=== PATIENT | female | born 1985 | race Caucasian/White ===

== ENCOUNTER 2016-05-01 08:25 | Emergency (ER) | payer OTHER ==
[~2016-05-01] VITALS: Ht 175.3 cm; Wt 61.2 kg
[~2016-05-01 08:25] MED LIST: ATIVAN0.5 M1 PO; B12 1MG PE1000 MCG/M IM; DILAUDID2 M1 PO; DONNATAL TABL16.2 MG PO; FIBER500 MG PO; HYDROXYZINE HCL25 M2 PO; LEVSIN-SL0.125 MG SL; LINZESS290 MC1 PO; LORAZEPAM0.5 M1 PO; MELOXICAM15 MG PO; METAMUCIL FIBE3.4 GM PO; OMEPRAZOLE20 M3 PO; PERCOCET 5-3251 EACH PO; PROAIR HFA8.5 GM INH; PROMETHAZINE HC25 M3 PO; REGLAN10 M1 PO; TRAMADOL HCL50 M1 PO; ZOFRAN ODT4 M1 SL
--- NOTE | 2016-05-01 08:47 | ED GI/GU/ABDOMINAL COMPLAINT ---
History of Present Illness General Chief Complaint: Nausea, Vomiting, Diarrhea Stated Complaint: NVD Source: patient, old records Exam Limitations: no limitations Vital Signs & Intake/Output Vital Signs & Intake/Output ED Intake and Output 05/02 0000 05/01 1200 Intake Total 1000 Output Total Balance 1000 Intake, IV 1000 Patient 135 lb Weight Allergies Coded Allergies: Cephalosporins (ANAPHYLAXIS 06/24/15) Penicillins (ANAPHYLAXIS 06/24/15) amoxicillin (ANAPHYLAXIS 06/24/15) eletriptan (From RELPAX) (HIVES 06/24/15) latex (HIVES, DYSPNEA 06/24/15) prednisone (STOPS HEART PER PT 06/24/15) sumatriptan (From IMITREX) (HIVES 06/24/15) Reconcile Medications Butalb/Acetaminophen/Caffeine (Fioricet 50-300-40 MG Capsule) 50 MG-300 MG-40 MG CAPSULE 1 TAB PO TID PRN MIGRAINE Hydroxyzine HCl 25 MG TABLET 1 TAB PO TID ANXIETY Metoclopramide HCl (Reglan) 10 MG TABLET 1 TAB PO 4 TIMES/DAY PRN NAUSEA 30 minutes before meals and bedtime Omeprazole 20 MG TABLET.DR 1 TAB PO DAILY ACIDITY Ondansetron HCl (Zofran) 4 MG TABLET 1 TAB PO Q6-8P PRN NAUSEA Promethazine HCl (Unknown Strength) TABLET (Unknown Dose) PO AD NAUSEA ( Reported) Triage Note: COMPLAINS OF N/V AND HEADACHE SINCE LAST PM, ALSO COMPLAINS OF INCREASED URINATION, LAST VOMITTED 20 MINUTES AGO. STATES THAT SHE IS ALSO GETTING LEG CRAMPS Triage Nurses Notes Reviewed? yes ? N Is pt currently ? No Onset: Gradual Duration: getting worse Severity Numbers: 8 Location: generalized abdomen Radiation: no radiation Activities at Onset: none HPI: Patient is a 30-year-old female with a past medical history significant for depression, GERD, migraines, ovarian cysts, cervical cancer and PSH of appendectomy, NEAL'S HERNIA, cholecystectomy, LEEP procedure for dysplasia, lysis of adhesions, Radha-en-Y gastric bypass 2004, intra-abdominal abscess was admitted to [facility] on 01/19/2016 for concerns of intractable nausea vomiting and abdominal pain in which patient was admitted for a day and which there was suspicion of mechanical obstruction versus functional extraction however no surgical intervention was performed that day image patient also received an upper GI scope with unremarkable findings. Patient HAD recent incisional hernia repair performed on February [address] VAN. Which patient presents to emergency room since 1500 yesterday of acute onset of nausea vomiting diarrhea. Patient had approximately 10-12 nonbloody nonbilious emesis and loose watery stool diarrhea production approximate 4 times. Positive for chills no fevers Patient has not been able tolerate anything by mouth since symptoms began. Patient took Phenergan with no relief of symptoms of nausea Positive for myalgias Patient then after multiple episodes of vomiting had generalized abdominal soreness reported Positive for headache WITH BLURRED VISION. LMP LAST WEEK. Denies any vaginal bleeding vaginal discharges frequency changes of urination hematuria or dysuria Past History Travel History Traveled to [place] past 21 day No Medical History Any Pertinent Medical History? 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: ovarian cyst History of MRSA: No History of VRE: No History of CDIFF: No Surgical History Surgical History: appendectomy (laparoscopic), cholecystectomy (laparoscopic), hernia repair-incisional, lap gastric bypass 08/2004 lap repair Petersens hernia 08/2007 LEEP procedure- dysplasia 2016 Psychosocial History Who do you live with Family Services at Home None What is your primary language Romansh Tobacco Use: Never used ETOH Use: denies use Illicit Drug Use: denies illicit drug use Family History Family History, If Any: MOTHER FATHER Relation not specified for: FH: colonic polyps Irritable bowel syndrome Hx Contributory? No Review of Systems Review of Systems Constitutional: Reports: see HPI, chills. EENTM: Reports: no symptoms. Respiratory: Reports: no symptoms. Cardiovascular: Reports: no symptoms. GI: Reports: see HPI, abdominal pain. Genitourinary: Reports: see HPI. Musculoskeletal: Reports: no symptoms. Skin: Reports: no symptoms. Neurological/Psychological: Reports: see HPI, headache. Hematologic/Endocrine: Reports: no symptoms. Immunologic/Allergic: Reports: no symptoms. All Other Systems: Reviewed and Negative Physical Exam Physical Exam General Appearance: mild distress Gastrointestinal: normal bowel sounds, soft, MILD GENERALIZED POINT TENDERNESS NOTED NO REBOUND TENDERNESS Comments: HEENT: Normal EENT exam, extraocular motion intact, no nystagmus. Pupils equally round and reactive to light and accommodation. Nose is atraumatic. External auditory canal and Tympanic membranes clear. Pharynx normal. No swelling or edema. Neck: Supple, no lymphadenopathy, normal range of motion without pain or tenderness Back: Nontender, no CVA tenderness. Cardiovascular: Regular rate and rhythms no murmurs rubs or gallops, normal JVP Respiratory: Chest nontender. No respiratory distress.breath sounds clear to auscultation bilaterally Abdomen: Soft, nontender nondistended, no appreciable organomegaly. Normal bowel sounds. No ascites Extremity: No edema, no calf tenderness to palpation, normal and equal pulses. Neuro: Alert oriented x3, motor sensory normal, cranial nerves II through XII grossly intact. Skin: No appreciable rash on exposed skin, skin is warm and dry. Psych: Mood and affect is normal, memory and judgment is normal. Core Measures ACS in differential dx? No Severe Sepsis Present: No Septic Shock Present: No Progress Differential Diagnosis: AAA, AMI, biliary colic, bowel obstruction, colon cancer , diverticulitis, ectopic , endometritis, esophageal varices, gastritis , hepatitis, hernia, hemorrhoids, ischemic bowel, inflamm bowel dis, intrauterine , kidney stone, Laure-Mauricio tear, ovarian cyst, ovarian torsion, pancreatitis, PID/cervicitis, peptic ulcer, PUD/GERD, perforated viscous, SBO, threatened AB, UTI/pyelo Plan of Care: Orders Procedure Date/time Status URINE 05/01 856 Complete URINALYSIS 05/01 856 Complete LIPASE 05/01 856 Complete LACTIC ACID 05/01 856 Complete HUMAN BETA HCG SCREEN 05/01 856 Complete COMPREHENSIVE METABOLIC PANEL 05/01 08 Complete CBC WITHOUT DIFFERENTIAL 05/01 08 Complete AMYLASE 05/01 08 Complete Laboratory Tests 05/01/16 1157: Lactic Acid Cancelled 05/01/16 0930: Anion Gap 9, Estimated GFR > 60, BUN/Creatinine Ratio 21.4, Glucose 88, Lactic Acid 1.2, Calcium 9.4, Total Bilirubin 0.9, AST 27, ALT 40, Alkaline Phosphatase 96, Total Protein 6.8, Albumin 4.1, Globulin 2.7, Albumin/Globulin Ratio 1.5, Amylase 47, Lipase 33, Total Beta HCG NEGATIVE, CBC w Diff NO MAN DIFF REQ, RBC 4.65, MCV 86.0, MCH 28.6, RDW 15.1 H, MPV 9.2, Gran % 92.3 H, Lymphocytes % 4.7 L, Monocytes % 2.5, Eosinophils % 0.1, Basophils % 0.4, Absolute Granulocytes 10.7 H, Absolute Lymphocytes 0.5 L, Absolute Monocytes 0.3, Absolute Eosinophils 0, Absolute Basophils 0, PUBS MCHC 33.3 05/01/16 0924: Urine Color YEL, Urine Clarity CLEAR, Urine pH 6.0, Ur Specific [place] <= 1.005 , Urine Protein NEG, Urine Ketones TRACE H, Urine Nitrite NEG, Urine Bilirubin NEG, Urine Urobilinogen 0.2, Ur Leukocyte Esterase NEG, Ur Microscopic SEDIMENT EXAMINED, Urine RBC RARE, Urine WBC 1-3 H, Ur Epithelial Cells FEW, Urine Hemoglobin SMALL H, Urine Glucose NEG, Urine Test NEGATIVE PT HAD SIGNIFICANT IMPROVEMENT OF NAUSEA WITH MEDICATIONS PT HAD IMPROVEMENT OF HEADACHE PT AFTER LABS WERE RESULTED WAS ABLE TO TOLERATE PO NONTENDER ABDOMEN NO CONCERNS OF SBO NO WARRANTING OF EMERGENT CT FOR INTRA-ABDOMINAL PROCESS HOWEVER I STRESSED WITH PT CLOSE MONITORING DUE TO SIGNIFICANT HX OF ABDOMINAL PATHOLOGY WILL F/U WITH GI PT MAY HAVE SX'S DUE TO MIGRAINE CAUSING N/V NO CONCERN OF SAH, NO THUNDERCLAP MANRIQUE HX PER PT UPON D/C PT LOOKS WELL NAD, NONTOXIC, AFEBRILE AND AGREES WITH DISPOSITION AND PLAN. (ZENAIDA ANGLIN,JENNA) Initial ED EKG: none Departure Departure Disposition: HOME OR SELF CARE Condition: Stable Clinical Impression Primary Impression: Migraine Secondary Impressions: Nausea & vomiting Referrals: TEMI DE LA CRUZ,JACKIE Rosales (PCP/Family) Additional Instructions: As discussed continue all medications as directed. Begin the prescription of Zofran for nausea and Reglan for breakthrough nausea relief. Begin a prescription of Fioricet for breakthrough migraine relief. Follow-up this week and established neurologist Dr. Sanchez for further evaluation and follow-up with your Departure Forms: Customer Survey General Discharge Information Prescriptions: Current Visit Scripts Butalb/Acetaminophen/Caffeine (Fioricet 50-300-40 MG Capsule) 1 TAB PO TID PRN MIGRAINE #15 MG Metoclopramide HCl (Reglan) 1 TAB PO 4 TIMES/DAY PRN NAUSEA #15 TAB 30 minutes before meals and bedtime Ondansetron HCl (Zofran) 1 TAB PO Q6-8P PRN NAUSEA #15 TAB
[2016-05-01] MEDS ORDERED: PROMETHAZINE12.5 M2 PO (09:14)
[2016-05-01 09:57] LABS: ABSOLUTE BASOPHIL COUNT 0 /CUMM (0.0-0.2); ABSOLUTE EOSINOPHIL COUNT 0 /CUMM (0.0-0.7); ABSOLUTE GRANULOCYTE CT 10.7 /CUMM (1.4-6.5); ABSOLUTE LYMPH COUNT 0.5 /CUMM (1.2-3.4); ABSOLUTE MONOCYTE COUNT 0.3 /CUMM (0.10-0.60); BASOPHIL % 0.4 % (0.0-2.0); EOSINOPHIL % 0.1 % (0-5); HEMATOCRIT 39.9 % (37-47); MEAN CORPUSCULAR HGB 28.6 PG (27.0-31.0); MEAN CORPUSCULAR HGB CONC 33.3 G/DL (33.0-37.0); MEAN PLATELET VOLUME 9.2 FL (7.4-10.4); PLATELET COUNT 377 /CUMM (130-400); RBC DISTRIBUTION WIDTH 15.1 % (11.5-14.5); RED BLOOD CELL CT 4.65 /CUMM (4.20-5.40); WHITE BLOOD CELL COUNT 11.6 /CUMM (4.8-10.8)
[2016-05-01 10:19] LABS: GRANULOCYTE % 92.3 % (42.2-75.2)
[2016-05-01] MEDS ORDERED: FIORICET 50-301 EACH PO (12:59)
[2016-05-01] MEDS ORDERED: ZOFRAN4 M2 PO (12:59)
[2016-05-01] MEDS ORDERED: REGLAN10 M1 PO (12:59)
[2016-05-01 13:12] VITALS: BP 92/92
== END 2016-05-01 13:35 ==
LOC: ERH 08:25
PROVIDERS: Physician Assistant
DX: G43.909 Migraine, unspecified, not intractable, without status migrainosus (principal); R11.2 Nausea with vomiting, unspecified
CPT/HCPCS: 81001; 81025; 96360; 96361; 96374; 96375; J0131; J1200; J2405

== ENCOUNTER 2016-05-05 11:23 | Inpatient (IN) | payer OTHER ==
[~2016-05-05] VITALS: Ht 175.3 cm; Wt 59.0 kg
[~2016-05-05 11:23] MED LIST changes: +FIORICET 50-301 EACH PO; +PROMETHAZINE12.5 M2 PO; +ZOFRAN4 M2 PO
--- NOTE | 2016-05-05 11:47 | NUR ---
C/O NAUSEA, VOMITING AND DIARRHEA X 1 WEEK. SEEN HERE ON 05/01 FOR SXS. STATES SHE PASSED OUT LAST NIGHT, AND IS NOW C/O FACIAL NUMBNESS AND LEGS TINGLING. HYPERVENTILATING AND DRY HEAVING IN TRIAGE.
--- NOTE | 2016-05-05 12:10 | NUR ---
PT TO ROOM 3 VIA W/C, AWAITING EVAL. Informed waiting has been performed.
--- NOTE | 2016-05-05 12:13 | ED GI/GU/ABDOMINAL COMPLAINT ---
History of Present Illness General Chief Complaint: Nausea, Vomiting, Diarrhea Stated Complaint: NVD Source: patient, old records Exam Limitations: no limitations Vital Signs & Intake/Output Vital Signs & Intake/Output Vital Signs Date Time Temp Pulse Resp B/P Pulse O2 O2 Flow FiO2 Ox Delivery Rate 05/05 1705 98.5 59 20 158/69 98 Room Air 05/05 1446 97.7 64 20 107/55 99 Room Air 05/05 1142 97.7 82 18 134/84 95 Room Air Allergies Coded Allergies: Cephalosporins (ANAPHYLAXIS 06/24/15) Penicillins (ANAPHYLAXIS 06/24/15) amoxicillin (ANAPHYLAXIS 06/24/15) eletriptan (From RELPAX) (HIVES 06/24/15) latex (HIVES, DYSPNEA 06/24/15) prednisone (STOPS HEART PER PT 06/24/15) sumatriptan (From IMITREX) (HIVES 06/24/15) Reconcile Medications Butalb/Acetaminophen/Caffeine (Fioricet 50-300-40 MG Capsule) 50 MG-300 MG-40 MG CAPSULE 1 TAB PO TID PRN MIGRAINE Hydroxyzine HCl 25 MG TABLET 1 TAB PO TID ANXIETY Metoclopramide HCl (Reglan) 10 MG TABLET 1 TAB PO 4 TIMES/DAY PRN NAUSEA 30 minutes before meals and bedtime Omeprazole 20 MG TABLET.DR 1 TAB PO DAILY ACIDITY Ondansetron HCl (Zofran) 4 MG TABLET 1 TAB PO Q6-8P PRN NAUSEA Promethazine HCl (Unknown Strength) TABLET (Unknown Dose) PO AD NAUSEA ( Reported) Triage Note: C/O NAUSEA, VOMITING AND DIARRHEA X 1 WEEK. SEEN HERE ON 05/01 FOR SXS. STATES SHE PASSED OUT LAST NIGHT, AND IS NOW C/O FACIAL NUMBNESS AND LEGS TINGLING. DRY HEAVING IN TRIAGE. Triage Nurses Notes Reviewed? yes ? n Is pt currently ? No HPI: Patient is a 30-year-old female presents complaining of abdominal pain, nausea, vomiting, diarrhea. Nausea, vomiting, diarrhea onset 5 days ago. 3-4 episodes of diarrhea daily, numerous episodes of vomiting daily. No blood present in the emesis or stool. Diffuse upper abdominal pain times one day. Pain is a sharp pain is 10 out of 10, no alleviating factors. Patient was seen in the emergency department earlier this week for her nausea, vomiting, diarrhea, had blood work, IV fluids, antiemetics, felt mildly improved and discharged home. Patient has been taking Reglan at home along with Zofran with no improvement. Positive sick contacts at home with vomiting and diarrhea. Intermittent paresthesias and cramping in hands and feet. Patient denies fevers. (PAT ALVARENGA) Past History Travel History Traveled to [place] past 21 day No Medical History Any Pertinent Medical History? 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: ovarian cyst History of MRSA: No History of VRE: No History of CDIFF: No Surgical History Surgical History: appendectomy (laparoscopic), cholecystectomy (laparoscopic), hernia repair-incisional, lap gastric bypass 08/2004 lap repair Petersens hernia 08/2007 LEEP procedure- 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 No (PAT ALVARENGA) Review of Systems Review of Systems Constitutional: Reports: malaise, weakness. Denies: chills, fever. EENTM: Reports: no symptoms. Respiratory: Denies: cough, short of breath. Cardiovascular: Denies: chest pain. GI: Reports: see HPI. Genitourinary: Reports: no symptoms. Musculoskeletal: Reports: muscle pain. Skin: Reports: no symptoms. Neurological/Psychological: Reports: paresthesia (hands and feet). Hematologic/Endocrine: Reports: no symptoms. Immunologic/Allergic: Reports: no symptoms. (PAT ALVARENGA) Physical Exam Physical Exam General Appearance: alert, awake Head: atraumatic, normal appearance Eyes: Bilateral: normal appearance, PERRL, EOMI. Ears, Nose, Throat, Mouth: hearing grossly normal, moist mucous membrane Neck: normal inspection, supple, full range of motion Respiratory: normal breath sounds, chest non-tender, no respiratory distress, lungs clear Cardiovascular: regular rate/rhythm Gastrointestinal: normal bowel sounds, soft, diffuse upper abdominal tenderness. Back: normal inspection, normal range of motion Extremities: normal range of motion Neurologic/Psych: no motor/sensory deficits, awake, alert, oriented x 3, normal gait, normal mood/affect Skin: intact, normal color, warm/dry Core Measures ACS in differential dx? No Severe Sepsis Present: No Septic Shock Present: No (ERIC ANGLIN,PAT) Progress Differential Diagnosis: perforated viscous, SBO, gastroenteritis, hernia, GERD, influenza, electrolyte abnormality, dehydration Plan of Care: Orders Procedure Date/time Status Place in observation 05/05 1754 Active Patient Data 05/05 1754 Active Add-on Test (ER Only) 05/05 1224 Active URINALYSIS 05/05 1216 Complete MAGNESIUM 05/05 1216 Complete LIPASE 05/05 1216 Complete HUMAN BETA HCG SCREEN 05/05 1216 Complete COMPREHENSIVE METABOLIC PANEL 05/05 1216 Complete CBC WITHOUT DIFFERENTIAL 05/05 1216 Complete AMYLASE 05/05 1216 Complete Laboratory Tests 05/05/16 1343: Anion Gap 11, Estimated GFR > 60, BUN/Creatinine Ratio 18.6, Glucose 91, Calcium 8.9, Magnesium 2.0, Total Bilirubin 0.5, AST 24, ALT 47, Alkaline Phosphatase 112, Total Protein 6.7, Albumin 4.0, Globulin 2.7, Albumin/Globulin Ratio 1.5, Amylase 44, Lipase 66, Total Beta HCG NEGATIVE 05/05/16 1245: CBC w Diff NO MAN DIFF REQ, RBC 4.82, MCV 85.0, MCH 28.5, RDW 15.8 H, MPV 8.7, Gran % 71.2, Lymphocytes % 22.6, Monocytes % 5.1, Eosinophils % 0.7, Basophils % 0.4, Absolute Granulocytes 7.5 H, Absolute Lymphocytes 2.4, Absolute Monocytes 0.5, Absolute Eosinophils 0.1, Absolute Basophils 0, PUBS MCHC 33.5 05/05/16 1235: Urine Color YEL, Urine Clarity CLEAR, Urine pH 6.5, Ur Specific [place] <= 1.005 , Urine Protein NEG, Urine Ketones NEG, Urine Nitrite NEG, Urine Bilirubin NEG, Urine Urobilinogen 0.2, Ur Leukocyte Esterase NEG, Ur Microscopic SEDIMENT EXAMINED, Urine RBC RARE, Ur Epithelial Cells FEW, Urine Hemoglobin TRACE-LYSED, Urine Glucose NEG Patient reevaluated multiple times. Results of labs and CT scan discussed with patient. 1700: Discussed with Dr. Van: have surgical PA evaluate patient. 1710: Discussed with Shoaib surgical PA to evaluate patient. Evaluated by surgical PA, patient to be brought in for observation, barium swallow study tomorrow. (ERIC ANGLIN,PAT) Diagnostic Imaging: Viewed by Me: CT Scan. Discussed w/RAD: CT Scan. Radiology Impression: PATIENT: GOOD ENRIQUEZ PRESENT AGE: 30 PATIENT ACCOUNT NO: [id number] : 84 LOCATION: [facility] ORDERING PHYSICIAN: PAT ANGLIN SERVICE DATE: 05/05/16 EXAM TYPE: CAT - CT ABD & PELVIS W IV CONTRAST EXAMINATION: CT ABDOMEN AND PELVIS WITH CONTRAST CLINICAL INFORMATION: Abdominal pain with vomiting, history of bariatric procedure. COMPARISON: 01/17/2016 TECHNIQUE: Multidetector volumetric imaging was performed of the abdomen and pelvis before and after the IV administration of 94 mL of Optiray 320 intravenous contrast. Sagittal and coronal reformatted images were obtained on the technologist's workstation. DLP: 264 mGy-cm FINDINGS : LUNG BASES: Hyperexpanded and unremarkable. LIVER AND SPLEEN: Unremarkable. PANCREAS GALLBLADDER AND BILIARY TREE: Pancreas and biliary tree appear unremarkable. The gallbladder has been previously removed. KIDNEYS, URETERS, AND ADRENALS: Unremarkable. URINARY BLADDER: Unremarkable. GI TRACT: The stomach and duodenum are nondilated. The proximal portion of the Radha-en-Y loop connecting the stomach pouch to the jejunum appears to be in a retrocolic position and nondilated down to its anastomosis. There is a dilated loop of small bowel best seen on coronal images with an apparent transition zone at its anastomosis to 23 through 30 with a questionable transition zone identified on image 30, however this is questionable. It is difficult to follow the bowel loops without oral contrast. The remaining bowel loops appear largely unremarkable and unchanged compared to multiple previous exams. Somewhat of an ileus-type pattern with multiple air-filled mildly prominent loops of large and small bowel. No focal fluid collections are identified. No evidence of bowel wall thickening is identified to suggest a primary pathology. I see no evidence of a hernia. Postsurgical changes are again noted. PERITONEAL CAVITY: There is no intraperitoneal free fluid identified on today's examination. RETROPERITONEUM: No evidence of adenopathy, the aorta is nonaneurysmal. PELVIC ORGANS: Unremarkable. OSSEOUS STRUCTURES: No focal destructive or sclerotic osseous lesions. ANTERIOR ABDOMINAL WALL AND SOFT TISSUES: No hernias. IMPRESSION: 1. Findings as noted without a clear-cut transition, questionable transition with a mildly dilated small bowel loop as noted. Surgical and clinical correlation recommended. 2. No evidence of an abscess at this time. DICTATED BY: LORENE ANDERSON MD DATE/TIME DICTATED:05/05/161441 CLINICAL SERVICES PROFESSIONAL:WERO DATE/TIME TRANSCRIBED:05/05/161441 CONFIDENTIAL, DO NOT COPY WITHOUT APPROPRIATE AUTHORIZATION. <Electronically signed in Other Vendor System> SIGNED BY: LORENE ANDERSON MD 05/05/16 1616 Initial ED EKG: none (PAT ALVARENGA) Departure Departure Disposition: STILL A PATIENT Condition: Stable Clinical Impression Primary Impression: Intractable vomiting Qualifiers: Vomiting type: unspecified Nausea presence: with nausea Qualified Code: R11.2 - Nausea with vomiting, unspecified Referrals: JACKIE MEMBRENO MD, I. (PCP/Family) Departure Forms: Customer Survey General Discharge Information Admission Note Documentation of Exam: Documentation of any treatments & extenuating circumstances including Concerns Regarding Discharge (functional status, medication knowledge or non-compliance, living conditions, etc.) that warrant an admission rather than observation: Observation Note Spoke With: DEANDRE VAN DO Place Patient In: Non-ED OBS Care Area Rationale for Observation: My rational for observation is as follows: Intractable vomiting despite multiple doses of IV antibiotics. Question of bowel obstruction. Patient needs to remain nothing by mouth, IV fluids, IV pain control, IV antibiotics, further abdominal imaging likely barium swallow study tomorrow. (PAT ALVARENGA) PA/ELECTRONIC IMAGING SYSTEM OPERATOR Co-Sign Statement Statement: ED Attending supervision documentation- [] I saw and evaluated the patient. I have also reviewed all the pertinent lab results and diagnostic results. I agree with the findings and the plan of care as documented in the PA's/ELECTRONIC IMAGING SYSTEM OPERATOR's documentation. [x] I have reviewed the ED Record and agree with the PA's/ELECTRONIC IMAGING SYSTEM OPERATOR's documentation. [] Additions or exceptions (if any) to the PAs/ELECTRONIC IMAGING SYSTEM OPERATOR's note and plan are summarized below: [] (LATHA DE LA CRUZ,MELISSA Alexandra)
--- NOTE | 2016-05-05 12:23 | NUR ---
LINNETTE REYES IN FOR EVAL.
--- NOTE | 2016-05-05 12:35 | NUR ---
URINE TRIO SENT.
[2016-05-05 12:53] LABS: ABSOLUTE BASOPHIL COUNT 0 /CUMM (0.0-0.2); ABSOLUTE EOSINOPHIL COUNT 0.1 /CUMM (0.0-0.7); ABSOLUTE GRANULOCYTE CT 7.5 /CUMM (1.4-6.5); ABSOLUTE LYMPH COUNT 2.4 /CUMM (1.2-3.4); ABSOLUTE MONOCYTE COUNT 0.5 /CUMM (0.10-0.60); BASOPHIL % 0.4 % (0.0-2.0); EOSINOPHIL % 0.7 % (0-5); GRANULOCYTE % 71.2 % (42.2-75.2); MEAN CORPUSCULAR HGB 28.5 PG (27.0-31.0); MEAN CORPUSCULAR HGB CONC 33.5 G/DL (33.0-37.0); MEAN PLATELET VOLUME 8.7 FL (7.4-10.4); PLATELET COUNT 418 /CUMM (130-400); RBC DISTRIBUTION WIDTH 15.8 % (11.5-14.5); RED BLOOD CELL CT 4.82 /CUMM (4.20-5.40); WHITE BLOOD CELL COUNT 10.5 /CUMM (4.8-10.8)
--- NOTE | 2016-05-05 13:24 | NUR ---
NEED REDRAW OF SST PER JAILENE IN LAB
--- NOTE | 2016-05-05 13:46 | NUR ---
REPEAT SST SENT TO LAB NOW. ALSO, EXTRA BLUE AND PINK TOP SENT TO LAB NOW.
--- NOTE | 2016-05-05 14:19 | NUR ---
PT MEDICATED WITH DILAUDID AND PHENERGEN PER EMAR.
--- NOTE | 2016-05-05 14:23 | NUR ---
PT TO CAT SCAN
--- NOTE | 2016-05-05 14:40 | NUR ---
BACK FROM CAT SCAN
--- NOTE | 2016-05-05 15:30 | NUR ---
AWAITING CAT SCAN RESULTS. Informed waiting has been performed.
--- NOTE | 2016-05-05 16:16 | CT SCAN REPORT ---
EXAMINATION: CT ABDOMEN AND PELVIS WITH CONTRAST CLINICAL INFORMATION: Abdominal pain with vomiting, history of bariatric procedure. COMPARISON: 01/17/2016 TECHNIQUE: Multidetector volumetric imaging was performed of the abdomen and pelvis before and after the IV administration of 94 mL of Optiray 320 intravenous contrast. Sagittal and coronal reformatted images were obtained on the technologist's workstation. DLP: 264 mGy-cm FINDINGS: LUNG BASES: Hyperexpanded and unremarkable. LIVER AND SPLEEN: Unremarkable. PANCREAS GALLBLADDER AND BILIARY TREE: Pancreas and biliary tree appear unremarkable. The gallbladder has been previously removed. KIDNEYS, URETERS, AND ADRENALS: Unremarkable. URINARY BLADDER: Unremarkable. GI TRACT: The stomach and duodenum are nondilated. The proximal portion of the Radha-en-Y loop connecting the stomach pouch to the jejunum appears to be in a retrocolic position and nondilated down to its anastomosis. There is a dilated loop of small bowel best seen on coronal images with an apparent transition zone at its anastomosis to 23 through 30 with a questionable transition zone identified on image 30, however this is questionable. It is difficult to follow the bowel loops without oral contrast. The remaining bowel loops appear largely unremarkable and unchanged compared to multiple previous exams. Somewhat of an ileus-type pattern with multiple air-filled mildly prominent loops of large and small bowel. No focal fluid collections are identified. No evidence of bowel wall thickening is identified to suggest a primary pathology. I see no evidence of a hernia. Postsurgical changes are again noted. PERITONEAL CAVITY: There is no intraperitoneal free fluid identified on today's examination. RETROPERITONEUM: No evidence of adenopathy, the aorta is nonaneurysmal. PELVIC ORGANS: Unremarkable. OSSEOUS STRUCTURES: No focal destructive or sclerotic osseous lesions. ANTERIOR ABDOMINAL WALL AND SOFT TISSUES: No hernias. IMPRESSION: 1. Findings as noted without a clear-cut transition, questionable transition with a mildly dilated small bowel loop as noted. Surgical and clinical correlation recommended. 2. No evidence of an abscess at this time.
--- NOTE | 2016-05-05 16:22 | NUR ---
LINNETTE REYES IN TO REVIEW POC.
--- NOTE | 2016-05-05 17:04 | NUR ---
MEDICATED PER EMAR. PT AWAITING SURGICAL CONSULT. Informed waiting has been performed.
--- NOTE | 2016-05-05 17:21 | NUR ---
SURGICAL PA STEPHANIA AT BEDSIDE.
--- NOTE | 2016-05-05 17:53 | NUR ---
PLAN IS FOR ADMISSION. Informed waiting has been performed.
--- NOTE | 2016-05-05 18:01 | Admission Core Measures ---
Admission Lab Results I reviewed the following labs: Laboratory Tests 05/05 05/05 1343 1245 Chemistry Sodium (137 - 145 mmol/L) 142 Potassium (3.5 - 5.1 mmol/L) 4.3 Chloride (98 - 107 mmol/L) 106 Carbon Dioxide (22 - 30 mmol/L) 24 Anion Gap (5 - 16) 11 BUN (7 - 17 mg/dL) 13 Creatinine (0.5 - 1.0 mg/dL) 0.7 Estimated GFR (>60 ml/min) > 60 BUN/Creatinine Ratio (7 - 25 %) 18.6 Glucose (65 - 99 mg/dL) 91 Calcium (8.4 - 10.2 mg/dL) 8.9 Magnesium (1.6 - 2.3 mg/dL) 2.0 Total Bilirubin (0.2 - 1.3 mg/dL) 0.5 AST (14 - 36 U/L) 24 ALT (9 - 52 U/L) 47 Alkaline Phosphatase (<127 U/L) 112 Total Protein (6.3 - 8.2 g/dL) 6.7 Albumin (3.5 - 5.0 g/dL) 4.0 Globulin (1.9 - 4.2 gm/dL) 2.7 Albumin/Globulin Ratio (1.1 - 2.2 %) 1.5 Amylase (30 - 110 U/L) 44 Lipase (23 - 300 U/L) 66 Total Beta HCG (NEGATIVE) NEGATIVE Hematology CBC w Diff NO MAN DIFF REQ WBC (4.8 - 10.8 /CUMM) 10.5 RBC (4.20 - 5.40 /CUMM) 4.82 Hgb (12.0 - 16.0 G/DL) 13.8 Hct (37 - 47 %) 41.0 MCV (81.0 - 99.0 FL) 85.0 MCH (27.0 - 31.0 PG) 28.5 RDW (11.5 - 14.5 %) 15.8 H Plt Count (130 - 400 /CUMM) 418 H MPV (7.4 - 10.4 FL) 8.7 Gran % (42.2 - 75.2 %) 71.2 Lymphocytes % (20.5 - 51.1 %) 22.6 Monocytes % (1.7 - 9.3 %) 5.1 Eosinophils % (0 - 5 %) 0.7 Basophils % (0.0 - 2.0 %) 0.4 Absolute Granulocytes (1.4 - 6.5 /CUMM) 7.5 H Absolute Lymphocytes (1.2 - 3.4 /CUMM) 2.4 Absolute Monocytes (0.10 - 0.60 /CUMM) 0.5 Absolute Eosinophils (0.0 - 0.7 /CUMM) 0.1 Absolute Basophils (0.0 - 0.2 /CUMM) 0 PUBS MCHC (33.0 - 37.0 G/DL) 33.5 05/05 1235 Urines Urine Color (YEL,AMB,STR) YEL Urine Clarity (CLEAR) CLEAR Urine pH (5.0 - 8.0) 6.5 Ur Specific [place] (1.001 - 1.035) <= 1.005 Urine Protein (NEG,<30 MG/DL) NEG Urine Ketones (NEG) NEG Urine Nitrite (NEG) NEG Urine Bilirubin (NEG) NEG Urine Urobilinogen (0.1 - 1.0 EU/dl) 0.2 Ur Leukocyte Esterase (NEG) NEG Ur Microscopic SEDIMENT EXAMINED Urine RBC (0 - 5 /HPF) RARE Ur Epithelial Cells (NONE,FEW) FEW Urine Hemoglobin (NEG) TRACE-LYSED Urine Glucose (N MG/DL) NEG Acute Coronary Syndrome Inclusion Criteria ACS Diagnosis No Inpatient Core Measures LDL Reminder: If No, please order W/I first 24hr of stay Congestive Heart Failure Inclusion Criteria CHF Diagnosis No Cerebrovascular accident Inclusion Criteria CVA/TIA Diagnosis No Inpatient Core Measures Bedside Swallow Eval Reminder: If BSE failed, place ST order Antithrombotic Reminder: Order Antithrombotic Medication by end of day 2 Antithrombotic Reminder: Document Reason Antithrombotic Not ordered by end of day 2 AFIB/Flutter Reminder: If Present, add to problem list AFIB/Flutter Reminder: Order Anticoag Medication for pts with AFIB/Flutter Atherosclerosis Reminder: If Present, add to problem list LDL Reminder: If No, please order W/I first 24hr of stay PT Order Reminder: If No, please order Venous thromboembolism Inpatient Core Measures VTE Risk Factors: No Risk Factors VTE Prophylaxis Ordered Inpt Mechanical (ALPS/TEDS) [facility] prophylaxis d/t No contraindications No VTE Pharm Prophylaxis d/t VTE low risk Inclusion Criteria - Per Current guidelines, there needs to be overlap - treatment for the first 5 days of Warfarin therapy. - Parenteral Anticoagulation (IV or SC) needs to be - given along with Warfarin therapy. VTE Diagnosis No VTE Type NONE VTE Confirmed by (Test) NONE Problem List As ranked by this Provider includes Assessment & Plan 1. Intractable vomiting HOME MEDS Home Med List Butalb/Acetaminophen/Caffeine (Fioricet 50-300-40 MG Capsule) 50 MG-300 MG-40 MG CAPSULE 1 TAB PO TID PRN MIGRAINE Hydroxyzine HCl 25 MG TABLET 1 TAB PO TID ANXIETY Metoclopramide HCl (Reglan) 10 MG TABLET 1 TAB PO 4 TIMES/DAY PRN NAUSEA Omeprazole 20 MG TABLET.DR 1 TAB PO DAILY ACIDITY Ondansetron HCl (Zofran) 4 MG TABLET 1 TAB PO Q6-8P PRN NAUSEA Promethazine HCl (Unknown Strength) TABLET (Unknown Dose) PO AD NAUSEA ( Reported)
--- NOTE | 2016-05-05 18:47 | History & Physical ---
LALY DAVIS 05/05/16 8675: General Information and HPI MD Statement: I have seen and personally examined GOOD ENRIQUEZ and documented this H&P. The patient is a 30 year old F who presented with a patient stated chief complaint of [intractable vomiting]. Source of Information: patient, old records Exam Limitations: no limitations History of Present Illness: Ms. Enriquez is a 30-year-old female with a past medical history of gastric bypass, SMA syndrome, anxiety, presents with midepigastric pain associated with frequent vomiting at home since Sunday. She states that she developed frequent diarrhea last Sunday and finally decided to be seen in the emergency room on Sunday at which time she was treated with antiemetics and pain medication and sent home. She states that the pain persisted all week and return today because her symptoms did not katharina. CAT scan taken today demonstrates mildly inflamed small bowel with no specific transition point consistent with bowel obstruction. She has no other complaints at this time. Given her past medical and surgical history after discussion with Dr. German he felt it necessary to admit her overnight for observation and obtain repeat x-rays in the morning with Gastrografin swallow. Allergies/Medications Allergies: Coded Allergies: Cephalosporins (ANAPHYLAXIS 06/24/15) Penicillins (ANAPHYLAXIS 06/24/15) amoxicillin (ANAPHYLAXIS 06/24/15) eletriptan (From RELPAX) (HIVES 06/24/15) latex (HIVES, DYSPNEA 06/24/15) prednisone (STOPS HEART PER PT 06/24/15) sumatriptan (From IMITREX) (HIVES 06/24/15) Home Med list Butalb/Acetaminophen/Caffeine (Fioricet 50-300-40 MG Capsule) 50 MG-300 MG-40 MG CAPSULE 1 TAB PO TID PRN MIGRAINE Hydroxyzine HCl 25 MG TABLET 1 TAB PO TID ANXIETY Metoclopramide HCl (Reglan) 10 MG TABLET 1 TAB PO 4 TIMES/DAY PRN NAUSEA 30 minutes before meals and bedtime Omeprazole 20 MG TABLET.DR 1 TAB PO DAILY ACIDITY Ondansetron HCl (Zofran) 4 MG TABLET 1 TAB PO Q6-8P PRN NAUSEA Promethazine HCl (Unknown Strength) TABLET (Unknown Dose) PO AD NAUSEA ( Reported) Past History Travel History Traveled to [place] past 21 day No Medical History Neurological: migraine EENT: NONE Cardiovascular: NONE Respiratory: NONE Gastrointestinal: GERD, hx gallstone pancreatitis Hepatic: NONE Renal: NONE Musculoskeletal: CHRONIC NECK PAIN Psychiatric: depression Endocrine: NONE Blood Disorders: NONE Cancer(s): cervical cancer 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 spouse Services at Home: None Primary Language: Polish ETOH Use: denies use Functional Ability ADLs Independent: dressing, eating, toileting, bathing. Ambulation: independent IADLs Independent: shopping, housework, finances, food prep, telephone, transportation , medication admin. Review of Systems Review of Systems Constitutional: Denies: no symptoms, see HPI, chills, diaphoresis, fever, malaise, weakness, unexplained weight loss. Exam & Diagnostic Data Last 24 Hrs of Vital Signs/I&O Vital Signs Date Time Temp Pulse Resp B/P Pulse O2 O2 Flow FiO2 Ox Delivery Rate 05/05 1705 98.5 59 20 158/69 98 Room Air 05/05 1446 97.7 64 20 107/55 99 Room Air 05/05 1142 97.7 82 18 134/84 95 Room Air Intake & Output 05/05 1600 05/05 0800 05/05 0000 Intake Total 1050 Output Total Balance 1050 Intake, IV 1050 Patient 135 lb Weight Physical Exam General Appearance Alert, Oriented X3 HEENT PERRLA Cardiovascular Regular Rate, Normal S1, Normal S2 Lungs Clear to Auscultation Abdomen Soft, abdomen is soft and flat, palpable tenderness to right upper quadrant and midepigastric region, no distention, no evidence of peritonitis, bowel sounds present Neurological Strength at 5/5 X4 Ext Extremities No Edema, Normal Pulses Last 24 Hrs of Labs/Johnathan: Laboratory Tests 05/05/16 1343: Anion Gap 11, Estimated GFR > 60, BUN/Creatinine Ratio 18.6, Glucose 91, Calcium 8.9, Magnesium 2.0, Total Bilirubin 0.5, AST 24, ALT 47, Alkaline Phosphatase 112, Total Protein 6.7, Albumin 4.0, Globulin 2.7, Albumin/Globulin Ratio 1.5, Amylase 44, Lipase 66, Total Beta HCG NEGATIVE 05/05/16 1245: CBC w Diff NO MAN DIFF REQ, RBC 4.82, MCV 85.0, MCH 28.5, RDW 15.8 H, MPV 8.7, Gran % 71.2, Lymphocytes % 22.6, Monocytes % 5.1, Eosinophils % 0.7, Basophils % 0.4, Absolute Granulocytes 7.5 H, Absolute Lymphocytes 2.4, Absolute Monocytes 0.5, Absolute Eosinophils 0.1, Absolute Basophils 0, PUBS MCHC 33.5 05/05/16 1235: Urine Color YEL, Urine Clarity CLEAR, Urine pH 6.5, Ur Specific [place] <= 1.005 , Urine Protein NEG, Urine Ketones NEG, Urine Nitrite NEG, Urine Bilirubin NEG, Urine Urobilinogen 0.2, Ur Leukocyte Esterase NEG, Ur Microscopic SEDIMENT EXAMINED, Urine RBC RARE, Ur Epithelial Cells FEW, Urine Hemoglobin TRACE-LYSED, Urine Glucose NEG Diagnostic Data Other Results SERVICE DATE: 05/05/16-1223 EXAM TYPE: CAT - CT ABD & PELVIS W IV CONTRAST EXAMINATION: CT ABDOMEN AND PELVIS WITH CONTRAST CLINICAL INFORMATION: Abdominal pain with vomiting, history of bariatric procedure. COMPARISON: 01/17/2016 TECHNIQUE: Multidetector volumetric imaging was performed of the abdomen and pelvis before and after the IV administration of 94 mL of Optiray 320 intravenous contrast. Sagittal and coronal reformatted images were obtained on the technologist's workstation. DLP: 264 mGy-cm FINDINGS: LUNG BASES: Hyperexpanded and unremarkable. LIVER AND SPLEEN: Unremarkable. PANCREAS GALLBLADDER AND BILIARY TREE: Pancreas and biliary tree appear unremarkable. The gallbladder has been previously removed. KIDNEYS, URETERS, AND ADRENALS: Unremarkable. URINARY BLADDER: Unremarkable. GI TRACT: The stomach and duodenum are nondilated. The proximal portion of the Radha-en-Y loop connecting the stomach pouch to the jejunum appears to be in a retrocolic position and nondilated down to its anastomosis. There is a dilated loop of small bowel best seen on coronal images with an apparent transition zone at its anastomosis to 23 through 30 with a questionable transition zone identified on image 30, however this is questionable. It is difficult to follow the bowel loops without oral contrast. The remaining bowel loops appear largely unremarkable and unchanged compared to multiple previous exams. Somewhat of an ileus-type pattern with multiple air-filled mildly prominent loops of large and small bowel. No focal fluid collections are identified. No evidence of bowel wall thickening is identified to suggest a primary pathology. I see no evidence of a hernia. Postsurgical changes are again noted. PERITONEAL CAVITY: There is no intraperitoneal free fluid identified on today's examination. RETROPERITONEUM: No evidence of adenopathy, the aorta is nonaneurysmal. PELVIC ORGANS: Unremarkable. OSSEOUS STRUCTURES: No focal destructive or sclerotic osseous lesions. ANTERIOR ABDOMINAL WALL AND SOFT TISSUES: No hernias. IMPRESSION: 1. Findings as noted without a clear-cut transition, questionable transition with a mildly dilated small bowel loop as noted. Surgical and clinical correlation recommended. 2. No evidence of an abscess at this time. DICTATED BY: LORENE ANDERSON MD DATE/TIME DICTATED:05/05/161441 WIRE ROPE SLING MAKER:WERO DATE/TIME TRANSCRIBED:05/05/161441 Assessment/Plan Assessment: Ms. Enriquez is a 30-year-old female with a past medical history of gastric bypass presents with midepigastric pain and intractable vomiting and diarrhea. CAT scan taken today is unequivocal for bowel obstruction. Given her history Dr. German feel prudent to admit her to the hospital overnight for observation and obtain a Gastrografin swallow study in the morning. Plan Admit to surgery Nothing by mouth IV hydration Pain meds Gastrografin bowel study in a.m. to definitively rule out obstruction Patient is in agreement Dr. German will evaluate the patient in the morning. As Ranked By This Provider Problem List: 1. Intractable vomiting Qualifiers Vomiting type: unspecified Nausea presence: with nausea Qualified Code: R11.2 - Nausea with vomiting, unspecified Core Measures/Miscellaneous Acute Coronary Syndrome ACS Diagnosis: No Cerebrovascular Accident CVA/TIA Diagnosis: No Congestive Heart Failure CHF Diagnosis: No Venous Thromboembolism VTE Risk Factors: No Risk Factors VTE Prophylaxis Ordered Inpt: Mechanical (ALPS/TEDS) No Mech VTE prophylaxis d/t: No contraindications No VTE Pharm Prophylaxis d/t: No contraindications VTE Diagnosis: No VTE Type: NONE VTE Confirmed by (Test): NONE Severe Sepsis Severe Sepsis Present: No Septic Shock Septic Shock Present: No Miscellaneous Documentation Attending Case Discussed With: Dr Marina Coffamn Primary Care Physician: TEMI DE LA CRUZ,JACKIE Arcos. Patient sees these Specialists none Level of Patient Care: General Medicine CARLOTA DEANDRE ARGUELLES 05/06/16 1223: Attending MD Review Statement Attending Statement Attending MD Statement: examined this patient, discuss w/resident/PA/ROOFER APPLICATOR, agreed w/resident/PA/ROOFER APPLICATOR, reviewed images Attending Assessment/Plan: Patient with recurrent episodes of N/V/diarrhea and abdominal pain. Is hungry, but is also nauseous. AVSS Labs ok CT reviewed-not much change from last time. NPo/IVF, will give gastrograffin and assess with an AXR.
--- NOTE | 2016-05-05 18:54 | NUR ---
AWAITING BED ASSIGNMENT. AMBULATED TO AND FROM BATHROOM WITH STEADY GAIT. Informed waiting has been performed.
--- NOTE | 2016-05-05 19:07 | NUR ---
PT IS GOING TO 234-1
--- NOTE | 2016-05-05 19:21 | NUR ---
PT MEDICATED WITH 40MG PROTONIX AND D5 1/2 NS INFUSING @100MLS/HR
--- NOTE | 2016-05-05 19:23 | NUR ---
ATTEMPTED TO CALL REPORT, ASKED TO CALL BACK TO DUE PTS IN HUDDLE
--- NOTE | 2016-05-05 20:01 | NUR ---
REPORT GIVEN TO HORTENSIA CHANG
--- NOTE | 2016-05-05 20:02 | NUR ---
[facility] CALLED FOR TRANSPORT
[2016-05-05 20:22] VITALS: BP 140/78
[2016-05-06 06:33] VITALS: BP 128/86
--- NOTE | 2016-05-06 10:22 | PN- General Surgery ---
Subjective Subjective: HD #1 with intractable N/V. Resting in bed. Nausea dissepated. No vomiting. Denies F/C, CP/SOB. Ambulating and voiding well. Objective Vital Signs and I&Os Vital Signs Date Time Temp Pulse Resp B/P Pulse O2 O2 Flow FiO2 Ox Delivery Rate 05/06 0633 97.6 56 14 128/86 99 Room Air 05/05 2021 98.2 89 20 140/78 97 Room Air 05/05 193 98.1 58 18 120/62 97 Room Air 05/05 1705 98.5 59 20 158/69 98 Room Air 05/05 1446 97.7 64 20 107/55 99 Room Air 05/05 1142 97.7 82 18 134/84 95 Room Air Intake & Output 05/06 1600 05/06 0800 05/06 0000 05/05 1600 05/05 0800 05/05 0000 Intake Total 002 789 5358 Output Total Balance 513 211 9621 Intake, IV 836 027 0472 Patient 132 lb 135 lb Weight Physical Exam: Gen: AAOx3 in NAD Cor: S1+S2+ Lungs: CTA geo Abd: soft, tender to epigastric region to deep palpation, ND, +BSx4 Ext: no edema or calf tenderness to geo lower extremities. Current Medications: Current Medications Sig/Alicia Start time Last Medication Dose Route Stop Time Status Admin Dextrose/Sodium 1,000 ML .Q10H 05/05 1899 AC 05/06 Chloride IV 0556 Hydromorphone HCl 1 MG Q2-3 HRS NEEDED.. 05/05 1900 AC 05/06 IV 0903 Hydromorphone HCl 1 MG ONCE ONE 05/05 1700 DC 05/05 IV 05/05 1701 1700 Hydromorphone HCl 0 .STK-MED ONE 05/05 1700 DC .ROUTE Hydromorphone HCl 0 .STK-MED ONE 05/05 1411 DC .ROUTE Hydromorphone HCl 1 MG ONCE ONE 05/05 1400 DC 05/05 IV 05/05 1401 1419 Hydromorphone HCl 0 .STK-MED ONE 05/05 1249 DC .ROUTE Hydromorphone HCl 1 MG ONCE ONE 05/05 1230 DC 05/05 IV 05/05 1231 1255 Metoclopramide HCl 0 .STK-MED ONE 05/05 1249 DC .ROUTE Metoclopramide HCl 10 MG ONCE ONE 05/05 1230 DC 05/05 IV 05/05 1231 1255 Ondansetron HCl 4 MG ONCE ONE 05/06 0915 DC 05/06 IV 05/06 0916 0919 Ondansetron HCl 4 MG Q8P PRN 05/05 1900 05/06 IV 0605 Pantoprazole Sodium 0 .STK-MED ONE 05/05 1916 DC IV Pantoprazole Sodium 40 MG DAILY 05/05 1907 AC 05/06 IV 0914 Promethazine HCl 0 .STK-MED ONE 05/05 1409 DC .ROUTE Promethazine HCl 25 MG ONCE ONE 05/05 1400 DC 05/05 IV 05/05 1401 1419 Sodium Chloride 1,000 ML BOLUS ONE 05/05 1230 DC 05/05 IV 05/05 1329 1255 Results Last 48 Hours of Labs: Laboratory Tests 05/05 05/05 1343 1245 Chemistry Sodium (137 - 145 mmol/L) 142 Potassium (3.5 - 5.1 mmol/L) 4.3 Chloride (98 - 107 mmol/L) 106 Carbon Dioxide (22 - 30 mmol/L) 24 Anion Gap (5 - 16) 11 BUN (7 - 17 mg/dL) 13 Creatinine (0.5 - 1.0 mg/dL) 0.7 Estimated GFR (>60 ml/min) > 60 BUN/Creatinine Ratio (7 - 25 %) 18.6 Glucose (65 - 99 mg/dL) 91 Calcium (8.4 - 10.2 mg/dL) 8.9 Magnesium (1.6 - 2.3 mg/dL) 2.0 Total Bilirubin (0.2 - 1.3 mg/dL) 0.5 AST (14 - 36 U/L) 24 ALT (9 - 52 U/L) 47 Alkaline Phosphatase (<127 U/L) 112 Total Protein (6.3 - 8.2 g/dL) 6.7 Albumin (3.5 - 5.0 g/dL) 4.0 Globulin (1.9 - 4.2 gm/dL) 2.7 Albumin/Globulin Ratio (1.1 - 2.2 %) 1.5 Amylase (30 - 110 U/L) 44 Lipase (23 - 300 U/L) 66 Total Beta HCG (NEGATIVE) NEGATIVE Hematology CBC w Diff NO MAN DIFF REQ WBC (4.8 - 10.8 /CUMM) 10.5 RBC (4.20 - 5.40 /CUMM) 4.82 Hgb (12.0 - 16.0 G/DL) 13.8 Hct (37 - 47 %) 41.0 MCV (81.0 - 99.0 FL) 85.0 MCH (27.0 - 31.0 PG) 28.5 RDW (11.5 - 14.5 %) 15.8 H Plt Count (130 - 400 /CUMM) 418 H MPV (7.4 - 10.4 FL) 8.7 Gran % (42.2 - 75.2 %) 71.2 Lymphocytes % (20.5 - 51.1 %) 22.6 Monocytes % (1.7 - 9.3 %) 5.1 Eosinophils % (0 - 5 %) 0.7 Basophils % (0.0 - 2.0 %) 0.4 Absolute Granulocytes (1.4 - 6.5 /CUMM) 7.5 H Absolute Lymphocytes (1.2 - 3.4 /CUMM) 2.4 Absolute Monocytes (0.10 - 0.60 /CUMM) 0.5 Absolute Eosinophils (0.0 - 0.7 /CUMM) 0.1 Absolute Basophils (0.0 - 0.2 /CUMM) 0 PUBS MCHC (33.0 - 37.0 G/DL) 33.5 05/05 1235 Urines Urine Color (YEL,AMB,STR) YEL Urine Clarity (CLEAR) CLEAR Urine pH (5.0 - 8.0) 6.5 Ur Specific [place] (1.001 - 1.035) <= 1.005 Urine Protein (NEG,<30 MG/DL) NEG Urine Ketones (NEG) NEG Urine Nitrite (NEG) NEG Urine Bilirubin (NEG) NEG Urine Urobilinogen (0.1 - 1.0 EU/dl) 0.2 Ur Leukocyte Esterase (NEG) NEG Ur Microscopic SEDIMENT EXAMINED Urine RBC (0 - 5 /HPF) RARE Ur Epithelial Cells (NONE,FEW) FEW Urine Hemoglobin (NEG) TRACE-LYSED Urine Glucose (N MG/DL) NEG Recent Imaging Studies: EXAM TYPE: CAT - CT ABD & PELVIS W IV CONTRAST EXAMINATION: CT ABDOMEN AND PELVIS WITH CONTRAST CLINICAL INFORMATION: Abdominal pain with vomiting, history of bariatric procedure. COMPARISON: 01/17/2016 TECHNIQUE: Multidetector volumetric imaging was performed of the abdomen and pelvis before and after the IV administration of 94 mL of Optiray 320 intravenous contrast. Sagittal and coronal reformatted images were obtained on the technologist's workstation. DLP: 264 mGy-cm FINDINGS: LUNG BASES: Hyperexpanded and unremarkable. LIVER AND SPLEEN: Unremarkable. PANCREAS GALLBLADDER AND BILIARY TREE: Pancreas and biliary tree appear unremarkable. The gallbladder has been previously removed. KIDNEYS, URETERS, AND ADRENALS: Unremarkable. URINARY BLADDER: Unremarkable. GI TRACT: The stomach and duodenum are nondilated. The proximal portion of the Radha-en-Y loop connecting the stomach pouch to the jejunum appears to be in a retrocolic position and nondilated down to its anastomosis. There is a dilated loop of small bowel best seen on coronal images with an apparent transition zone at its anastomosis to 23 through 30 with a questionable transition zone identified on image 30, however this is questionable. It is difficult to follow the bowel loops without oral contrast. The remaining bowel loops appear largely unremarkable and unchanged compared to multiple previous exams. Somewhat of an ileus-type pattern with multiple air-filled mildly prominent loops of large and small bowel. No focal fluid collections are identified. No evidence of bowel wall thickening is identified to suggest a primary pathology. I see no evidence of a hernia. Postsurgical changes are again noted. PERITONEAL CAVITY: There is no intraperitoneal free fluid identified on today's examination. RETROPERITONEUM: No evidence of adenopathy, the aorta is nonaneurysmal. PELVIC ORGANS: Unremarkable. OSSEOUS STRUCTURES: No focal destructive or sclerotic osseous lesions. ANTERIOR ABDOMINAL WALL AND SOFT TISSUES: No hernias. IMPRESSION: 1. Findings as noted without a clear-cut transition, questionable transition with a mildly dilated small bowel loop as noted. Surgical and clinical correlation recommended. 2. No evidence of an abscess at this time. DICTATED BY: LORENE ANDERSON MD DATE/TIME DICTATED:05/05/161441 TRAINING TECHNICIAN:WERO DATE/TIME TRANSCRIBED:05/05/161441 CONFIDENTIAL, DO NOT COPY WITHOUT APPROPRIATE AUTHORIZATION. <Electronically signed in Other Vendor System> SIGNED BY: LORENE ANDERSON MD [id number] Assessment/Plan Assessment/Plan A: HD #1 with intractable N/V s/p lap gastric bypass with CT findings concerning for a partial small bowel obstruction at level of anastamosis (dilated loop of SB on CT); AVSS. Plan: Zofran prn N/V. Gastrografin given at 8am this morning. Multiview abdomen scheduled for 2pm. OOB and ambulate as tolerated. Continue IV protonix. ? need for carafate . Will discuss with attending concrete craftsman Core Measures/Miscellaneous Venous Thromboembolism VTE Risk Factors: No Risk Factors VTE Contraindications: No Contraindications VTE Prophylaxis Ordered Inpt Mechanical (ALPS/TEDS) VTE Diagnosis: No VTE Type: NONE VTE Confirmed by (Test): NONE Beta Mary Jane Is Beta Mary Jane a Home Med? No Antibiotics Is Patient on Antibiotics? No
--- NOTE | 2016-05-06 14:44 | RADIOLOGY REPORT ---
EXAMINATION: XR ABDOMEN MULTIPLE VIEWS CLINICAL INDICATION: 30-year-old woman with nausea and vomiting. COMPARISON: 05/05/2016 CT TECHNIQUE: Supine and upright films of the abdomen were obtained at 2:00 PM. The patient ingested 30 mL of Gastrografin at 8:00 AM. FINDINGS: Nondilated large bowel loops are distended with gas and feces. Dilute ingested oral contrast is seen throughout primarily colon with some residual seen in a few distal ileal loops. No dilated small bowel loops, significant air-fluid levels, or free peritoneal air is appreciated. IMPRESSION: Nonobstructive bowel gas pattern.
[2016-05-06 15:04] VITALS: BP 120/84
[2016-05-06 22:47] VITALS: BP 110/60
[2016-05-07 06:00] VITALS: BP 120/80
--- NOTE | 2016-05-07 10:40 | PN- General Surgery ---
See Addendum Subjective Subjective: Patient was advanced to a stage II bariatric diet yesterday. She did not tolerate potato soup very well and experienced some dry yesterday. She was kept nothing by mouth for a little while and resumed stage II diet again today. She tolerated tomato soup and denies nausea at this time. She thinks she is passing some flatus, but no bowel movement as of yet. She feels much more energetic today and is ambulating throughout the hallways. Objective Vital Signs and I&Os Vital Signs Date Time Temp Pulse Resp B/P Pulse O2 O2 Flow FiO2 Ox Delivery Rate 05/07 06 98.0 64 18 120/80 96 Room Air 05/06 2247 97.7 54 20 110/60 94 Room Air 05/06 1504 97.9 54 20 120/84 99 Intake & Output 05/07 1600 05/07 0800 05/07 0000 05/06 1600 05/06 0800 05/06 0000 Intake Total 800 300 850 800 400 Output Total Balance 800 300 850 800 400 Intake, IV 800 800 800 400 Intake, Oral 300 50 Patient 132 lb Weight Physical Exam: Gen.: Patient is awake and alert. No acute distress. Cardiac regular Pulmonary: Lungs are clear bilaterally. Abdomen: Soft and nondistended. There is mild tenderness in the right upper quadrant and along the midline incision. There is a subtle weakness that measures about 2 cm in the superior midline, but no definitive hernias are appreciated. Patient is status post hernia repair with mesh. Normoactive bowel sounds were heard. Extremities: No edema or tenderness appreciated. Results Last 48 Hours of Labs: Laboratory Tests 05/07 05/06 05/05 0831 1150 1343 Chemistry Sodium (137 - 145 mmol/L) 140 139 142 Potassium (3.5 - 5.1 mmol/L) 4.2 4.6 4.3 Chloride (98 - 107 mmol/L) 103 102 106 Carbon Dioxide (22 - 30 mmol/L) 29 27 24 Anion Gap (5 - 16) 8 10 11 BUN (7 - 17 mg/dL) 7 9 13 Creatinine (0.5 - 1.0 mg/dL) 0.8 0.7 0.7 Estimated GFR (>60 ml/min) > 60 > 60 > 60 BUN/Creatinine Ratio (7 - 25 %) 8.8 12.9 18.6 Glucose (65 - 99 mg/dL) 91 Calcium (8.4 - 10.2 mg/dL) 8.9 Phosphorus (2.5 - 4.5 mg/dL) 4.7 H 4.6 H Magnesium (1.6 - 2.3 mg/dL) 2.0 1.9 2.0 Total Bilirubin (0.2 - 1.3 mg/dL) 0.5 AST (14 - 36 U/L) 24 ALT (9 - 52 U/L) 47 Alkaline Phosphatase (<127 U/L) 112 Total Protein (6.3 - 8.2 g/dL) 6.7 Albumin (3.5 - 5.0 g/dL) 4.0 Globulin (1.9 - 4.2 gm/dL) 2.7 Albumin/Globulin Ratio (1.1 - 2.2 %) 1.5 Amylase (30 - 110 U/L) 44 Lipase (23 - 300 U/L) 66 Total Beta HCG (NEGATIVE) NEGATIVE 05/05 05/05 1245 1235 Hematology CBC w Diff NO MAN DIFF REQ WBC (4.8 - 10.8 /CUMM) 10.5 RBC (4.20 - 5.40 /CUMM) 4.82 Hgb (12.0 - 16.0 G/DL) 13.8 Hct (37 - 47 %) 41.0 MCV (81.0 - 99.0 FL) 85.0 MCH (27.0 - 31.0 PG) 28.5 RDW (11.5 - 14.5 %) 15.8 H Plt Count (130 - 400 /CUMM) 418 H MPV (7.4 - 10.4 FL) 8.7 Gran % (42.2 - 75.2 %) 71.2 Lymphocytes % (20.5 - 51.1 %) 22.6 Monocytes % (1.7 - 9.3 %) 5.1 Eosinophils % (0 - 5 %) 0.7 Basophils % (0.0 - 2.0 %) 0.4 Absolute Granulocytes (1.4 - 6.5 /CUMM) 7.5 H Absolute Lymphocytes (1.2 - 3.4 /CUMM) 2.4 Absolute Monocytes (0.10 - 0.60 /CUMM) 0.5 Absolute Eosinophils (0.0 - 0.7 /CUMM) 0.1 Absolute Basophils (0.0 - 0.2 /CUMM) 0 PUBS MCHC (33.0 - 37.0 G/DL) 33.5 Urines Urine Color (YEL,AMB,STR) YEL Urine Clarity (CLEAR) CLEAR Urine pH (5.0 - 8.0) 6.5 Ur Specific [place] (1.001 - 1.035) <= 1.005 Urine Protein (NEG,<30 MG/DL) NEG Urine Ketones (NEG) NEG Urine Nitrite (NEG) NEG Urine Bilirubin (NEG) NEG Urine Urobilinogen (0.1 - 1.0 EU/dl) 0.2 Ur Leukocyte Esterase (NEG) NEG Ur Microscopic SEDIMENT EXAMINED Urine RBC (0 - 5 /HPF) RARE Ur Epithelial Cells (NONE,FEW) FEW Urine Hemoglobin (NEG) TRACE-LYSED Urine Glucose (N MG/DL) NEG Recent Imaging Studies: X-ray of abdomen on 05/07/2016: Nondilated large bowel loops are distended with gas and feces. Dilute ingested oral contrast is seen throughout primarily colon with some residual seen in a few distal ileal loops. No dilated small bowel loops, significant air-fluid levels, or free peritoneal air is appreciated. IMPRESSION: Nonobstructive bowel gas pattern. Assessment/Plan Assessment/Plan HD #2 with intractable N/V s/p lap gastric bypass with CT findings concerning for a partial small bowel obstruction at level of anastamosis (dilated loop of SB on CT). X-ray with Gastrografin done yesterday revealed a nonobstructive bowel gas pattern with contrast passing through the colon. Plan: Continue bariatric stage II diet for now. Zofran can be used if needed for nausea, in which case we will regress diet if needed. Out of bed and ambulate. Continue IV protonix. I spoke with Dr. German, and if patient is tolerating her diet after lunch today, consider discharge on bariatric stage II diet. Core Measures/Miscellaneous Venous Thromboembolism VTE Risk Factors: No Risk Factors VTE Contraindications: No Contraindications VTE Prophylaxis Ordered Inpt Mechanical (ALPS/TEDS) VTE Diagnosis: No VTE Type: NONE VTE Confirmed by (Test): NONE Beta Mary Jane Is Beta Mary Jane a Home Med? No Antibiotics Is Patient on Antibiotics? No
[2016-05-07 15:15] VITALS: BP 114/72
--- NOTE | 2016-05-07 20:12 | Patient Discharge Instructions ---
Discharge Instructions General Discharge Information You were seen/treated for: Intractable nausea and vomiting You had these procedures: IV fluid rehydration Watch for these problems: Fever greater than 101, increased abdominal pain, nausea, vomiting, inability to tolerate oral intake. Diet Continue normal diet: No Recommended Diet: BARIATRIC STAGE II Activity Full Activity/No Limits: No Activity Self Limited: Yes Pounds, do NOT lift more than: 15 Other activity limits: No strenuous activity or heavy lifting until symptoms completely resolved. Acute Coronary Syndrome Inclusion Criteria At DC or during hospital stay patient has or had the following: ACS DIAGNOSIS No Discharge Core Measures Meds if any: Prescribed or Continued at Discharge Meds if any: NOT Prescribed or Continued at Discharge Congestive Heart Failure Inclusion Criteria At DC or during hospital stay patient has or had the following: CHF DIAGNOSIS No Discharge Core Measures Meds if any: Prescribed or Continued at Discharge Meds if any: NOT Prescribed or Continued at Discharge Cerebrovascular accident Inclusion Criteria At DC or during hospital stay patient has or had the following: CVA/TIA Diagnosis No Discharge Core Measures Meds if any: Prescribed or Continued at Discharge Meds if any: NOT Prescribed or Continued at Discharge Venous thromboembolism Inclusion Criteria VTE Diagnosis No VTE Type NONE VTE Confirmed by (Test) NONE Discharge Core Measures - Per Current guidelines, there needs to be overlap - treatment for the first 5 days of Warfarin therapy. - If discharged on Warfarin prior to 5 days of - overlap therapy, the patient will need to be - assessed for post discharge needs including - *Post discharge parental anticoagulation - *Warfarin and/or parental anticoagulation education - *Follow up date to check INR post discharge At least 5 days overlap therapy as Inpatient No Meds if any: Prescribed or Continued at Discharge Note: Overlap Therapy is Warfarin and Anticoagulant Meds if any: NOT Prescribed or Continued at Discharge
[2016-05-07 22:18] VITALS: BP 126/86
[2016-05-08 06:00] VITALS: BP 132/74
--- NOTE | 2016-05-08 07:33 | PN- General Surgery ---
Subjective Subjective: Pt tolerated her stage II diet last night. Feels better. Nausea resolved, still with some mild pain but states that it has not changed for months - she believes it started after her hernia surgery in February 2016. +flatus, no BM yet but feels like one is coming. Ambulating without difficulty. Objective Vital Signs and I&Os Vital Signs Date Time Temp Pulse Resp B/P Pulse O2 O2 Flow FiO2 Ox Delivery Rate 05/08 0600 98.1 60 18 132/74 97 Room Air 05/07 2218 97.9 56 18 126/86 99 Room Air 05/07 1515 99.0 72 114/72 99 Room Air Intake & Output 05/08 0800 05/08 0000 05/07 1600 05/07 0800 05/07 0000 05/06 1600 Intake Total 827 657 7233 800 300 850 Output Total Balance 985 603 4935 800 300 850 Intake, IV 30 20 700 800 800 Intake, Oral 480 240 700 300 50 Patient 130 lb Weight Physical Exam: afebrile, vss General: alert and oriented times three Chest: clear anteriorly bilaterally, RRR Abd: soft, good bs, nondistended, nontender to palpation Ext: warm, no edema Assessment/Plan Assessment/Plan 30 yo female s/p numerous abdominal surgeries,s/p gastric bypass 2004, admitted with n/v now resolved Core Measures/Miscellaneous Venous Thromboembolism VTE Risk Factors: No Risk Factors VTE Contraindications: No Contraindications VTE Prophylaxis Ordered Inpt Mechanical (ALPS/TEDS) VTE Diagnosis: No VTE Type: NONE VTE Confirmed by (Test): NONE Beta Mary Jane Is Beta Mary Jane a Home Med? No Antibiotics Is Patient on Antibiotics? No
--- NOTE | 2016-05-23 15:26 | Discharge Summary ---
Visit Information Visit Dates Admission Date: 05/05/16 Discharge Date: 05/08/16 Hospital Course Course Attending Physician: DEANDRE COFFMAN DO Primary Care Physician: JACKIE MEMBRENO MD, I. Hospital Course: Patient admitted to hospital with intractable n/v and chronic abdominal pain. Initial CT scan showed non-specific bowel gas pattern suggestive of small bowel obstruction. Patient initially kept NPO but HD#1 patient started passing flatus. She continued to progress well from there and was advanced to a bariatric stage II diet. Repeat abdominal films showed improvement. Hospital course uneventful. Upon discharge patient is afebrile, pain controlled, tolerating bariatric stage II diet, voiding, passing flatus. Complications: None Allergies: Coded Allergies: Cephalosporins (ANAPHYLAXIS 06/24/15) Penicillins (ANAPHYLAXIS 06/24/15) amoxicillin (ANAPHYLAXIS 06/24/15) eletriptan (From RELPAX) (HIVES 06/24/15) latex (HIVES, DYSPNEA 06/24/15) prednisone (STOPS HEART PER PT 06/24/15) sumatriptan (From IMITREX) (HIVES 06/24/15) Significant Procedures: None Disposition Summary Disposition Principal Diagnosis: SBO Additional Diagnosis: None Discharge Disposition: home or self care Discharge Instructions General Discharge Information Code Status: Full Code Patient's Diet: Bariatric Stage II Patient's Activity: As tolerated Follow-Up Instructions/Appts: Call Dr. Coffman's office to schedule/confirm appointment Medications at Discharge Discharge Medications: Continue taking these medications: Omeprazole (Omeprazole) 20 MG TABLET. 1 Tablet ORAL DAILY Qty = 30 Comments: NOT GIVEN IN HOSPITAL Hydroxyzine HCl (Hydroxyzine HCl) 25 MG TABLET 1 Tablet ORAL THREE TIMES DAILY Qty = 90 Comments: NOT TAKEN IN HOSPITAL Promethazine HCl (Promethazine HCl) (Unknown Strength) TABLET Unknown Dose ORAL As Directed Comments: NOT TAKEN IN HOSPITAL Butalb/Acetaminophen/Caffeine (Fioricet 50-300-40 MG Capsule) 50 MG-300 MG-40 MG CAPSULE 1 Tablet ORAL THREE TIMES DAILY as needed for MIGRAINE Qty = 15 Comments: NOT TAKEN IN HOSPITAL Metoclopramide HCl (Reglan) 10 MG TABLET 1 Tablet ORAL 4 TIMES A DAY as needed for NAUSEA Qty = 15 Instructions: 30 minutes before meals and bedtime Comments: Last Taken: 1/30/17 Time: 1:15 PM Ondansetron HCl (Zofran) 4 MG TABLET 1 Tablet ORAL Every 6-8 Hours as Needed as needed for NAUSEA Qty = 15 Comments: LAST TAKEN VIA IV 05/07/16 AT 1 PM Copies To: DEANDRE COFFAMN DO
== END 2016-05-08 13:49 | DRG 251 ==
LOC: ENRESERVDT → ENRESERVTM → ERH 11:23 → ERHI 17:55 → 2NA 20:15 → ENPENDDIS 05-07 14:11 → 2NA 05-07 14:11
PROVIDERS: Physician Assistant; ADMIT Surgery
DX: R10.13 Epigastric pain (principal); R11.2 Nausea with vomiting, unspecified; Z98.84 Bariatric surgery status
CPT/HCPCS: 2NAP; 6030; 36415; 74020; 74177; 81001; 82436; 96361; 96374; 96375; 96376; G0378; J0780; J2405; J2550; J2765; J7042

== ENCOUNTER 2016-08-16 15:57 | Observation (INO) | payer OTHER ==
[~2016-08-16] VITALS: Ht 175.3 cm; Wt 63.5 kg
--- NOTE | 2016-08-16 16:00 | NUR ---
PT TO ED C/O PAIN UNDER RIGHT RIB STARTED SUDDENLY THIS AM AROUND 11OO WHILE AT WORK. STATES SHARP IN NATURE. DENIES ANY OBVIOUS INJURY. STATES PAIN IS WORSE WITH INSPIRATION. RA SATS 97%. NO RESP DISTRESS NOTED. PT TAKEN TO ROOM 6 FOR FURTHER EVAL.
--- NOTE | 2016-08-16 16:04 | ED CARDIAC/CP/PALPITATIONS ---
History of Present Illness General Chief Complaint: Trunk Injury Stated Complaint: R SIDE RIB PAIN Source: patient, family, old records Exam Limitations: no limitations Allergies Coded Allergies: Cephalosporins (ANAPHYLAXIS 06/24/15) Penicillins (ANAPHYLAXIS 06/24/15) amoxicillin (ANAPHYLAXIS 06/24/15) eletriptan (From RELPAX) (HIVES 06/24/15) latex (HIVES, DYSPNEA 06/24/15) prednisone (STOPS HEART PER PT 06/24/15) sumatriptan (From IMITREX) (HIVES 06/24/15) Triage Note: PT TO ED C/O PAIN UNDER RIGHT RIB STARTED SUDDENLY THIS AM AROUND 11OO WHILE AT WORK. STATES SHARP IN NATURE. DENIES ANY OBVIOUS INJURY. STATES PAIN IS WORSE WITH INSPIRATION. RA SATS 97%. NO RESP DISTRESS NOTED. PT TAKEN TO ROOM 6 FOR FURTHER EVAL. Triage Nurses Notes Reviewed? yes Onset: Abrupt Duration: hour(s): (5), constant Timing: recent history Quality/Severity: moderate, severe, aching, pressure Location: RUQ Radiation: BACK AND CHEST Activities at Onset: none Prior Chest Pain/Card Workup: no prior chest pain Modifying Factors: Worsens With: breathing. 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 She states the pain is worse with palpation and inspiration, no n/v/d. she denies cough, hemoptysis, shorntess of breath. pain is nonradiating. she denies history similar episodes in the past. her last bm was this morning and normal per pt. (JENNA DREW) Vital Signs & Intake/Output Vital Signs & Intake/Output Vital Signs Date Time Temp Pulse Resp B/P B/P Pulse O2 O2 Flow FiO2 Mean Ox Delivery Rate 08/16 1948 98.3 65 16 126/64 97 Room Air 08/16 1804 96.3 78 18 125/68 08/16 1709 Room Air 05/10 1600 97.8 73 20 129/83 97 Room Air Reconcile Medications Butalb/Acetaminophen/Caffeine (Fioricet 50-300-40 MG Capsule) 50 MG-300 MG-40 MG CAPSULE 1 TAB PO TID PRN MIGRAINE Diazepam (Valium) 5 MG TABLET 1 TAB PO Q8P spasms Hydroxyzine HCl 25 MG TABLET 1 TAB PO TID ANXIETY Metoclopramide HCl (Reglan) 10 MG TABLET 1 TAB PO 4 TIMES/DAY PRN NAUSEA 30 minutes before meals and bedtime Omeprazole 20 MG TABLET.DR 1 TAB PO DAILY ACIDITY Ondansetron HCl (Zofran) 4 MG TABLET 1 TAB PO Q6-8P PRN NAUSEA Promethazine HCl (Unknown Strength) TABLET (Unknown Dose) PO AD NAUSEA ( Reported) (IRINA DE LA CRUZ,OLGA) Past History Travel History Traveled to [place] past 21 day No Medical History Any Pertinent Medical History? 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: YEAST WHEN ON ABX History of MRSA: No History of VRE: No History of CDIFF: No Influenza Vaccine: 02/08/16 Surgical History Surgical History: appendectomy (laparoscopic), cholecystectomy (laparoscopic), hernia repair-incisional, lap gastric bypass 08/2004 lap repair Petersens hernia 08/2007 LEEP procedure- dysplasia 2016 sma syndrome surgery Psychosocial History Who do you live with Family Services at Home None What is your primary language Kenyan Tobacco Use: Quit >30 days ago ETOH Use: denies use Illicit Drug Use: denies illicit drug use Family History Family History, If Any: MOTHER FATHER Relation not specified for: FH: colonic polyps Irritable bowel syndrome Hx Contributory? No (AFSHAN ANGLIN,JENNA) Review of Systems Review of Systems Constitutional: Reports: see HPI. All Other Systems: Reviewed and Negative Comments Review of systems: See HPI, All other systems negative. Constitutional, no chills no fever, no malaise HEENT: No visual changes no sore throat no congestion, Cardiovascular: No chest pain , no palpitation , Skin: no rashes, no change in skin Respiratory: No dyspnea no cough no sputum no hemoptysis GI: No nausea no vomiting, no diarrhea, no bloating/constipation : No dysuria No hematuria, no frequency, no discharge Muscle skeletal: No joint pain, no joint swelling, no back pain, Neurologic: No numbness no confusion, no headache Psych: No stress . Heme/endocrine: No bruising no bleeding Immunology: No lymphadenopathy (AFSHAN ANGLIN,JENNA) Physical Exam Physical Exam General Appearance: well developed/nourished, no apparent distress, alert Cardiovascular: regular rate/rhythm Comments: Well-developed well-nourished person in no acute distress HEENT: Normal EENT exam; PERRL, EOMI. HEAD is atraumatic. moist mucous membranes. Neck: Supple, no lymphadenopathy, normal range of motion Back: Nontender, no CVA tenderness. Full range of motion Cardiovascular: Regular rate and rhythms no murmurs rubs Respiratory: Chest nontender.There were no bony deformities, no asymmetry. No respiratory distress. Patient speaking in full complete sentences. Breath sounds clear to auscultation bilaterally: NO W/R/R Abdomen: Soft, tender to palpation over the right upper quadrant nondistended, no appreciable organomegaly. Normal bowel sounds. No rebound/guarding, No appreciable enlargement of the abdominal aorta, No ascites. Extremity: No edema, full range of motion of extremities Neuro: Alert oriented x3, motor sensory normal, There were no obvious focal neurologic abnormalities. Skin: No appreciable rash on exposed skin, skin is warm and dry. No jaundice no diaphoresis Psych: Mood and affect is normal, memory and judgment is normal. Core Measures ACS in differential dx? Yes Severe Sepsis Present: No Septic Shock Present: No (JENNA DREW) Progress Differential Diagnosis: AMI, cholecystitis, costochondritis, musculoskeletal pain, myocarditis, pancreatitis, pericarditis, pneumonia, pneumothorax, pulmonary embolism, pancreatitis, hernia, sbo, pna, malignancy, bowel perforation, pud, gastritis Diagnostic Imaging: Viewed by Me: Radiology Read, CT Scan. Discussed w/RAD: Radiology Read, CT Scan. Radiology Impression: PATIENT: GOOD ENRIQUEZ PRESENT AGE: 30 PATIENT ACCOUNT NO: [id number] : 84 LOCATION: [facility] ORDERING PHYSICIAN: JENNA ANGLIN SERVICE DATE: 08/16/16 EXAM TYPE: RAD - XRY- PORTABLE CHEST XRAY EXAMINATION: XR PORTABLE CHEST CLINICAL INFORMATION: Right sided chest pain worse with inspiration. COMPARISON: Chest 07/09/2015. TECHNIQUE : Portable frontal view of the chest was obtained. FINDINGS: Both lungs are fairly well-expanded and clear of acute process. The heart size and pulmonary vascularity is normal. No gross bony abnormality seen. IMPRESSION: Unremarkable chest exam. DICTATED BY: JOSE MIGUEL CRUZ MD DATE/TIME DICTATED:08/16/161700 RN RADIATION ONCOLOGY:WERO DATE/TIME TRANSCRIBED:08/16/161700 CONFIDENTIAL, DO NOT COPY WITHOUT APPROPRIATE AUTHORIZATION. <Electronically signed in Other Vendor System> SIGNED BY: ANTHONY DE LA CRUZ,JOSE MIGUEL 08/16/161704 Initial ED EKG: normal intervals, normal p-waves, normal QRS complex, normal sinus rhythm (60) Rhythm Strip: normal sinus rhythm (JENNA DREW) Plan of Care: Orders Procedure Date/time Status Nothing by Mouth 08/17 B Active [id number] VIEWS 08/17 08 Active Pathway - chart 08/17 1999 Active Code Status 08/17 1999 Active Patient Data 08/16 1950 Active Add-on Test (ER Only) 08/16 194 Active Vital Signs 08/16 194 Active Code Status 08/[address] in observation 08/16 194 Active Add-on Test (ER Only) 08/16 1703 Active URINALYSIS 08/16 1630 Complete TROPONIN LEVEL 08/16 1629 Complete LIPASE 08/16 1629 Complete AMYLASE 08/16 1629 Complete URINE 08/16 1623 Complete HUMAN BETA HCG SCREEN 08/16 1603 Complete D-DIMER 08/16 1603 Complete COMPREHENSIVE METABOLIC PANEL 08/16 1603 Complete CBC WITHOUT DIFFERENTIAL 08/16 1603 Complete EKG 08/16 1603 Active Vital Signs 08/16 UNK Active Intake & Output 08/16 UNK Active Activity/Ambulation 08/16 UNK Active Current Medications Sig/Alicia Start time Last Medication Dose Stop Time Status Admin Omeprazole 20 MG DAILY AC 08/17 0700 AC (Prilosec) Hydroxyzine HCl 25 MG TID 08/16 2200 AC (Atarax) Acetaminophen 1,000 MG Q6P PRN 08/17 1999 AC (Ofirmev) N/A 1 UNIT (No Carrier) Dextrose/Sodium 1,000 ML .[id number] 08/17 1999 AC Chloride (D5W-1/2 Normal Saline 1000ML) Hydromorphone HCl 0.4 MG Q4P PRN 08/17 1999 AC (Dilaudid) Ketorolac 30 MG Q6-PRN PRN 08/17 1999 AC Tromethamine (Toradol) Ondansetron HCl 4 MG Q8P PRN 08/17 1999 AC (Zofran) Laboratory Tests 08/16/16 1630: Urine Color STRAW, Urine Clarity CLEAR, Urine pH 6.5, Ur Specific [place] 1.010, Urine Protein NEG, Urine Ketones NEG, Urine Nitrite NEG, Urine Bilirubin NEG, Urine Urobilinogen 0.2, Ur Leukocyte Esterase SMALL H, Ur Microscopic SEDIMENT EXAMINED, Urine RBC 1-3, Urine WBC 5-10 H, Ur Epithelial Cells FEW, Urine Bacteria FEW H, Urine Hemoglobin SMALL H, Urine Glucose NEG, Urine Test NEGATIVE 08/16/16 1629: Anion Gap 10, Estimated GFR > 60, BUN/Creatinine Ratio 18.6, Glucose 87, Calcium 9.4, Total Bilirubin 0.4, AST 20, ALT 43, Alkaline Phosphatase 92, Troponin I < 0.01, Total Protein 6.9, Albumin 4.4, Globulin 2.5, Albumin/Globulin Ratio 1.8, Amylase 72, Lipase 67, Total Beta HCG NEGATIVE, D-Dimer < 200, CBC w Diff NO MAN DIFF REQ, RBC 4.17 L, MCV 91.4, MCH 30.1, RDW 14.8 H, MPV 9.5, Gran % 65.0, Lymphocytes % 28.3, Monocytes % 5.1, Eosinophils % 1.4, Basophils % 0.2, Absolute Granulocytes 6.6 H, Absolute Lymphocytes 2.9, Absolute Monocytes 0.5, Absolute Eosinophils 0.1, Absolute Basophils 0, PUBS MCHC 33.0 08/16/16 1604: Amylase Cancelled, Lipase Cancelled Labs ordered old records reviewed patient medicated Toradol 30 IV CAT scan chest x-ray ordered case discussed with Dr. BALTAZAR agrees with plan Patient with persistent pain Dilaudid 1 mg IV ordered 1800 patient states pain is getting worse morphine 4 mg IV ordered patient was seen and evaluated by Dr. Baltazar pending CAT scan CALL PLACED TO BARIATRIC SURGEON DR VAN [address] van advised to admit pt to his service, surgical pa called 1950 dr van in dept to reese pt (JENNA DREW) Departure Departure Time of Disposition: 1940 Condition: Stable Referrals: TEMI DE LA CRUZ,JACKIE Rosales (PCP/Family) Departure Forms: Customer Survey General Discharge Information Observation Note Spoke With: DEANDRE VAN DO Place Patient In: Non-ED OBS Care Area Rationale for Observation: My rational for observation is as follows trend labs, iv pain control, surgery consult, premature discharge would be medically harmful (JENNA DREW) Departure Disposition: STILL A PATIENT Clinical Impression Primary Impression: Abdominal pain Prescriptions: Current Visit Scripts Diazepam (Valium) 1 TAB PO Q8P #20 TAB PA/BARROW WORKER HELPER Co-Sign Statement Statement: ED Attending supervision documentation- [X] I saw and evaluated the patient. I have also reviewed all the pertinent lab results and diagnostic results. I agree with the findings and the plan of care as documented in the PA's/BARROW WORKER HELPER's documentation. [X] I have reviewed the ED Record and agree with the PA's/BARROW WORKER HELPER's documentation. [] Additions or exceptions (if any) to the PAs/BARROW WORKER HELPER's note and plan are summarized below: [] (IRINA DE LA CRUZ,OLGA) Critical Care Note Critical Care Note Critical Care Time: non-applicable (JENNA DREW)
--- NOTE | 2016-08-16 16:34 | NUR ---
LABS DRAWN AND SENT BY THIS [facility] (BLUE,SST,LAV,MEDINA,PINK)
[2016-08-16 16:41] LABS: ABSOLUTE BASOPHIL COUNT 0 /CUMM (0.0-0.2); ABSOLUTE EOSINOPHIL COUNT 0.1 /CUMM (0.0-0.7); ABSOLUTE GRANULOCYTE CT 6.6 /CUMM (1.4-6.5); ABSOLUTE LYMPH COUNT 2.9 /CUMM (1.2-3.4); ABSOLUTE MONOCYTE COUNT 0.5 /CUMM (0.10-0.60); BASOPHIL % 0.2 % (0.0-2.0); EOSINOPHIL % 1.4 % (0-5); MEAN CORPUSCULAR HGB 30.1 PG (27.0-31.0); MEAN CORPUSCULAR VOLUME 91.4 FL (81.0-99.0); MEAN PLATELET VOLUME 9.5 FL (7.4-10.4); PLATELET COUNT 276 /CUMM (130-400); RBC DISTRIBUTION WIDTH 14.8 % (11.5-14.5); RED BLOOD CELL CT 4.17 /CUMM (4.20-5.40); WHITE BLOOD CELL COUNT 10.2 /CUMM (4.8-10.8)
--- NOTE | 2016-08-16 17:05 | RADIOLOGY REPORT ---
EXAMINATION: XR PORTABLE CHEST CLINICAL INFORMATION: Right sided chest pain worse with inspiration. COMPARISON: Chest 07/09/2015. TECHNIQUE: Portable frontal view of the chest was obtained. FINDINGS: Both lungs are fairly well-expanded and clear of acute process. The heart size and pulmonary vascularity is normal. No gross bony abnormality seen. IMPRESSION: Unremarkable chest exam.
--- NOTE | 2016-08-16 17:11 | NUR ---
PT REPORTS HAVING RIGHT RIB PAIN, DENIES INJURY. STATES THAT SHE WAS AT WORK AND HAD SUDDEN ONSET. DENIES N/V AT THIS TIME.
--- NOTE | 2016-08-16 18:03 | NUR ---
PAIN WORSE, RADIATING DOWN BACK, 10/10. PACING BESIDE STRETCHER.
--- NOTE | 2016-08-16 18:09 | NUR ---
PT MEDICATED WITH MORPHINE PER EMAR.
--- NOTE | 2016-08-16 18:11 | CT SCAN REPORT ---
EXAMINATION: CT ABDOMEN AND PELVIS WITH CONTRAST CLINICAL INFORMATION: Right upper quadrant abdominal pain, worse with inspiration. History of gastric bypass. COMPARISON: CT abdomen and pelvis with contrast 05/05/2016. TECHNIQUE: Multidetector volumetric imaging was performed of the abdomen and pelvis before and after the IV administration of 94 mL of Optiray 320 intravenous contrast. Sagittal and coronal reformatted images were obtained on the technologist's workstation. DLP: 277 mGy-cm FINDINGS: LUNG BASES: The visualized lung bases are unremarkable. LIVER, GALLBLADDER, AND BILIARY TREE: The liver is normal in size, shape, and attenuation. No focal hepatic lesion or biliary ductal dilatation is present. The gallbladder is surgically absent. PANCREAS: Unremarkable. SPLEEN: Unremarkable. ADRENAL GLANDS: Unremarkable. KIDNEYS AND URETERS: The kidneys are normal in size, shape, and attenuation. No hydronephrosis, hydroureter, or calculi seen. No perinephric stranding. BLADDER: Unremarkable. GASTROINTESTINAL TRACT: Evaluation of the gastrointestinal system demonstrates postsurgical changes related to prior gastric bypass surgery. Ingested oral contrast is identified within the proximal jejunum. Of note, there is feculent material within the imaged loops of small bowel, which is nonspecific but can be seen in the setting of delayed intestinal transit. This can also be seen in the setting of an early small bowel obstruction. There are multiple air-filled loops of large bowel. There is also identified within the rectum. There are no visible organizing intra-abdominal or pelvic fluid collections and there is no free intraperitoneal air. ABDOMINAL WALL: No significant hernia is appreciated. LYMPH NODES: No significant abdominal or pelvic adenopathy. VASCULAR: Patent abdominal vasculature. Normal course and caliber of the abdominal aorta and its branching vessels, without aneurysmal dilatation. PELVIC VISCERA: Interval development of hypoattenuating lesions within the bilateral adnexa measuring 4.5 x 5.9 cm within the right adnexa and 4.2 x 5.2 cm within the left adnexa. These may reflect bilateral ovarian cysts. OSSEOUS STRUCTURES: No acute osseous abnormality. Normal alignment of the thoracolumbar spine. IMPRESSION: 1. Limited evaluation of the abdomen secondary to scant intra-abdominal fat. There are postsurgical changes related to prior gastric bypass surgery, with ingested oral contrast visualized opacifying the proximal jejunum. Feculent material is identified within multiple loops of small bowel within the abdomen. This finding is consistent with a small bowel feces sign, which is indicative of underlying delayed intestinal transit. Although air is identified within the colon and rectum, a developing small bowel obstruction cannot be excluded. If there is clinical concern for integrity of the gastric bypass, consider correlation with a fluoroscopic upper GI exam. 2. Interval development of hypoattenuating lesions within the bilateral adnexa measuring 4.5 x 5.9 cm within the right adnexa and 4.2 x 5.2 cm within the left adnexa. If the patient is experiencing pelvic pain, consider correlation with pelvic ultrasound.
--- NOTE | 2016-08-16 19:45 | NUR ---
PT STILL C/O ABD PAIN 11/16, MEDICATED WITH MORPHINE 2MG IV PER ORDER. SURGICAL PA AT BEDSIDE FOR PT EVAL.
--- NOTE | 2016-08-16 20:37 | NUR ---
PT BED ASSIGNMENT 215-1
--- NOTE | 2016-08-16 20:50 | Admission Core Measures ---
Admission Lab Results I reviewed the following labs: Laboratory Tests 08/16 08/16 1630 1629 Chemistry Sodium (137 - 145 mmol/L) 141 Potassium (3.5 - 5.1 mmol/L) 4.1 Chloride (98 - 107 mmol/L) 108 H Carbon Dioxide (22 - 30 mmol/L) 24 Anion Gap (5 - 16) 10 BUN (7 - 17 mg/dL) 13 Creatinine (0.5 - 1.0 mg/dL) 0.7 Estimated GFR (>60 ml/min) > 60 BUN/Creatinine Ratio (7 - 25 %) 18.6 Glucose (65 - 99 mg/dL) 87 Calcium (8.4 - 10.2 mg/dL) 9.4 Total Bilirubin (0.2 - 1.3 mg/dL) 0.4 AST (14 - 36 U/L) 20 ALT (9 - 52 U/L) 43 Alkaline Phosphatase (<127 U/L) 92 Troponin I (< 0.11 ng/ml) < 0.01 Total Protein (6.3 - 8.2 g/dL) 6.9 Albumin (3.5 - 5.0 g/dL) 4.4 Globulin (1.9 - 4.2 gm/dL) 2.5 Albumin/Globulin Ratio (1.1 - 2.2 %) 1.8 Amylase (30 - 110 U/L) 72 Lipase (23 - 300 U/L) 67 Total Beta HCG (NEGATIVE) NEGATIVE Coagulation D-Dimer (70 - 232 ng/ml) < 200 Hematology CBC w Diff NO MAN DIFF REQ WBC (4.8 - 10.8 /CUMM) 10.2 RBC (4.20 - 5.40 /CUMM) 4.17 L Hgb (12.0 - 16.0 G/DL) 12.5 Hct (37 - 47 %) 38.0 MCV (81.0 - 99.0 FL) 91.4 MCH (27.0 - 31.0 PG) 30.1 RDW (11.5 - 14.5 %) 14.8 H Plt Count (130 - 400 /CUMM) 276 MPV (7.4 - 10.4 FL) 9.5 Gran % (42.2 - 75.2 %) 65.0 Lymphocytes % (20.5 - 51.1 %) 28.3 Monocytes % (1.7 - 9.3 %) 5.1 Eosinophils % (0 - 5 %) 1.4 Basophils % (0.0 - 2.0 %) 0.2 Absolute Granulocytes (1.4 - 6.5 /CUMM) 6.6 H Absolute Lymphocytes (1.2 - 3.4 /CUMM) 2.9 Absolute Monocytes (0.10 - 0.60 /CUMM) 0.5 Absolute Eosinophils (0.0 - 0.7 /CUMM) 0.1 Absolute Basophils (0.0 - 0.2 /CUMM) 0 PUBS MCHC (33.0 - 37.0 G/DL) 33.0 Urines Urine Color (YEL,AMB,STR) STRAW Urine Clarity (CLEAR) CLEAR Urine pH (5.0 - 8.0) 6.5 Ur Specific [employer] (1.001 - 1.035) 1.010 Urine Protein (NEG,<30 MG/DL) NEG Urine Ketones (NEG) NEG Urine Nitrite (NEG) NEG Urine Bilirubin (NEG) NEG Urine Urobilinogen (0.1 - 1.0 EU/dl) 0.2 Ur Leukocyte Esterase (NEG) SMALL H Ur Microscopic SEDIMENT EXAMINED Urine RBC (0 - 5 /HPF) 1-3 Urine WBC (0 - 2 /HPF) 5-10 H Ur Epithelial Cells (NONE,FEW) FEW Urine Bacteria (NEG/NONE) FEW H Urine Hemoglobin (NEG) SMALL H Urine Glucose (N MG/DL) NEG Urine Test NEGATIVE 08/16 1604 Chemistry Amylase Cancelled Lipase Cancelled Admission Meds I reviewed the following Meds: Current Medications Sig/Alicia Start time Last Medication Dose Stop Time Status Admin Acetaminophen 1,000 MG Q6P PRN 08/17 1999 AC (Ofirmev) N/A 1 UNIT (No Carrier) Dextrose/Sodium 1,000 ML .[id number] 08/17 1999 AC 08/16 Chloride 2040 (D5W-1/2 Normal Saline 1000ML) Hydromorphone HCl 0.4 MG Q4P PRN 08/17 1999 AC (Dilaudid) Hydroxyzine HCl 25 MG TID 08/16 220 AC (Atarax) Ketorolac 30 MG Q6-PRN PRN 08/17 1999 AC Tromethamine (Toradol) Omeprazole 20 MG DAILY AC 08/17 0700 AC (Prilosec) Ondansetron HCl 4 MG Q8P PRN 08/17 1999 AC (Zofran) Acute Coronary Syndrome Inclusion Criteria ACS Diagnosis No Inpatient Core Measures LDL Reminder: If No, please order W/I first 24hr of stay Congestive Heart Failure Inclusion Criteria CHF Diagnosis No Cerebrovascular accident Inclusion Criteria CVA/TIA Diagnosis No Inpatient Core Measures Bedside Swallow Eval Reminder: If BSE failed, place ST order Antithrombotic Reminder: Order Antithrombotic Medication by end of day 2 Antithrombotic Reminder: Document Reason Antithrombotic Not ordered by end of day 2 AFIB/Flutter Reminder: If Present, add to problem list AFIB/Flutter Reminder: Order Anticoag Medication for pts with AFIB/Flutter Atherosclerosis Reminder: If Present, add to problem list LDL Reminder: If No, please order W/I first 24hr of stay PT Order Reminder: If No, please order Venous thromboembolism Inpatient Core Measures VTE Risk Factors: No Risk Factors No [facility] VTE prophylaxis d/t No contraindications No VTE Pharm Prophylaxis d/t No contraindications Inclusion Criteria - Per Current guidelines, there needs to be overlap - treatment for the first 5 days of Warfarin therapy. - Parenteral Anticoagulation (IV or SC) needs to be - given along with Warfarin therapy. VTE Diagnosis No VTE Type NONE VTE Confirmed by (Test) NONE Problem List As ranked by this Provider includes Assessment & Plan 1. Abdominal pain HOME MEDS Home Med List Butalb/Acetaminophen/Caffeine (Fioricet 50-300-40 MG Capsule) 50 MG-300 MG-40 MG CAPSULE 1 TAB PO TID PRN MIGRAINE Hydroxyzine HCl 25 MG TABLET 1 TAB PO TID ANXIETY Metoclopramide HCl (Reglan) 10 MG TABLET 1 TAB PO 4 TIMES/DAY PRN NAUSEA Omeprazole 20 MG TABLET.DR 1 TAB PO DAILY ACIDITY Ondansetron HCl (Zofran) 4 MG TABLET 1 TAB PO Q6-8P PRN NAUSEA Promethazine HCl (Unknown Strength) TABLET (Unknown Dose) PO AD NAUSEA ( Reported)
--- NOTE | 2016-08-16 21:18 | NUR ---
REPORT GIVEN TO HORTENSIA YIN TO 2NB.
--- NOTE | 2016-08-16 21:19 | RADIOLOGY REPORT ---
EXAMINATION: XR ABDOMEN MULTIPLE VIEWS CLINICAL INDICATION: Small bowel obstruction. Acute abdominal pain. COMPARISON: Abdomen 05/06/2016 TECHNIQUE: Supine upright abdomen FINDINGS: Stool and air throughout nondilated colon to the lower pelvis. There is known dilated small bowel loops. No significant air-fluid levels on the upright view. Nonobstructive bowel pattern. Moderate to large-volume of stool in the right colon with smaller volume of stool in left colon. Surgical clips in the upper abdomen. There is contrast in the renal collecting system administered for the CT performed today. IMPRESSION: Nonobstructive bowel pattern.
--- NOTE | 2016-08-16 21:28 | NUR ---
[facility] CALLED FOR TRANSPORT.
--- NOTE | 2016-08-16 22:22 | NUR ---
PT ARRIVED TO FLOOR. A;OX3; VSS; MILD PAIN TO RT RIB/ BREASET AREA; 20 RAC PLACED IN ED AND PATENT. SETTLED INTO BED AND REPORT GIVEN TO ASSIGNED RN.
--- NOTE | 2016-08-16 22:37 | History & Physical ---
LALY DAVIS 08/16/16 2228: General Information and HPI MD Statement: I have seen and personally examined GOOD ENRIQUEZ and documented this H&P. The patient is a 30 year old F who presented with a patient stated chief complaint of abdominal pain []. Source of Information: patient Exam Limitations: no limitations History of Present Illness: Ms. Enriquez is a 30-year-old female with past medical history of lap gastric bypass surgery presents with sudden onset of midepigastric to upper abdominal pain that started this afternoon. She states up until that moment she had no abdominal pain and at the time she was sitting at her desk. She denies any previous nausea or vomiting she hadn't had normal bowel movements but had complained of some urinary frequency. She denies any fever or chills and has tolerated her diet without difficulty. CAT scan taken at [facility] emergency room this evening demonstrates changes associated with gastric bypass surgery but also could not rule out bowel obstruction due to gas pattern. The patient was evaluated also by Dr. German in the emergency room this evening who felt that the patient should be monitored overnight and pain controlled with IV pain medication. 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) EENT: NONE Cardiovascular: NONE Respiratory: asthma Gastrointestinal: GERD, PANCREATITIS CAUSED BY GALLSTONES LAP GASTRIC BYPASS 2004 APPENDECTOMY Hepatic: CHOLECYSTECTOMY Renal: NONE Musculoskeletal: CHRONIC NECK PAIN Psychiatric: depression Endocrine: NONE Blood Disorders: anemia Cancer(s): cervical cancer FACULTY DEAN/Reproductive: YEAST WHEN ON ABX History of MRSA: No History of VRE: No History of CDIFF: No Isolation History: Standard Influenza Vaccine: 02/08/16 Surgical History Surgical History: appendectomy (laparoscopic), cholecystectomy (laparoscopic), hernia repair-incisional, lap gastric bypass 08/2004 lap repair Petersens hernia 08/2007 LEEP procedure- dysplasia 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 spouse Services at Home: None Primary Language: Syriac Smoking Status: Former Smoker ETOH Use: denies use Illicit Drug Use: denies illicit drug use Functional Ability ADLs Independent: dressing, eating, toileting, bathing. Ambulation: independent IADLs Independent: shopping, housework, finances, food prep, telephone, transportation , medication admin. Review of Systems Review of Systems Constitutional: Denies: no symptoms, see HPI, chills, diaphoresis, fever, malaise, weakness, unexplained weight loss. Exam & Diagnostic Data Last 24 Hrs of Vital Signs/I&O Vital Signs Date Time Temp Pulse Resp B/P B/P Pulse O2 O2 Flow FiO2 Mean Ox Delivery Rate 08/16 2214 Room Air 08/17 2127 98.2 71 18 129/74 99 Room Air 08/16 1948 98.3 65 16 126/64 97 Room Air 08/16 1804 96.3 78 18 125/68 08/16 1709 Room Air 08/16 1600 97.8 73 20 129/83 97 Room Air Physical Exam General Appearance Alert, Oriented X3 HEENT Atraumatic, PERRLA Cardiovascular Regular Rate, Normal S1, Normal S2 Lungs Clear to Auscultation Abdomen diffuse vague midepigastric and upper abdominal pain to palpation., Abdomen soft, bowel sounds are active, no evidence of peritonitis Neurological Strength at 5/5 X4 Ext Extremities No Edema Vascular Normal Pulses Last 24 Hrs of Labs/Johnathan: Laboratory Tests 08/16/16 1630: Urine Color STRAW, Urine Clarity CLEAR, Urine pH 6.5, Ur Specific [place] 1.010, Urine Protein NEG, Urine Ketones NEG, Urine Nitrite NEG, Urine Bilirubin NEG, Urine Urobilinogen 0.2, Ur Leukocyte Esterase SMALL H, Ur Microscopic SEDIMENT EXAMINED, Urine RBC 1-3, Urine WBC 5-10 H, Ur Epithelial Cells FEW, Urine Bacteria FEW H, Urine Hemoglobin SMALL H, Urine Glucose NEG, Urine Test NEGATIVE 08/16/16 1629: Anion Gap 10, Estimated GFR > 60, BUN/Creatinine Ratio 18.6, Glucose 87, Calcium 9.4, Total Bilirubin 0.4, AST 20, ALT 43, Alkaline Phosphatase 92, Troponin I < 0.01, Total Protein 6.9, Albumin 4.4, Globulin 2.5, Albumin/Globulin Ratio 1.8, Amylase 72, Lipase 67, Total Beta HCG NEGATIVE, D-Dimer < 200, CBC w Diff NO MAN DIFF REQ, RBC 4.17 L, MCV 91.4, MCH 30.1, RDW 14.8 H, MPV 9.5, Gran % 65.0, Lymphocytes % 28.3, Monocytes % 5.1, Eosinophils % 1.4, Basophils % 0.2, Absolute Granulocytes 6.6 H, Absolute Lymphocytes 2.9, Absolute Monocytes 0.5, Absolute Eosinophils 0.1, Absolute Basophils 0, PUBS MCHC 33.0 08/16/16 1604: Amylase Cancelled, Lipase Cancelled Diagnostic Data Other Results SERVICE DATE: 08/16/16 EXAM TYPE: CAT - CT ABD & PELVIS W ORAL & IV CO EXAMINATION: CT ABDOMEN AND PELVIS WITH CONTRAST CLINICAL INFORMATION: Right upper quadrant abdominal pain, worse with inspiration. History of gastric bypass. COMPARISON: CT abdomen and pelvis with contrast 05/05/2016. TECHNIQUE: Multidetector volumetric imaging was performed of the abdomen and pelvis before and after the IV administration of 94 mL of Optiray 320 intravenous contrast. Sagittal and coronal reformatted images were obtained on the technologist's workstation. DLP: 277 mGy-cm FINDINGS: LUNG BASES: The visualized lung bases are unremarkable. LIVER, GALLBLADDER, AND BILIARY TREE: The liver is normal in size, shape, and attenuation. No focal hepatic lesion or biliary ductal dilatation is present. The gallbladder is surgically absent. PANCREAS: Unremarkable. SPLEEN: Unremarkable. ADRENAL GLANDS: Unremarkable. KIDNEYS AND URETERS: The kidneys are normal in size, shape, and attenuation. No hydronephrosis, hydroureter, or calculi seen. No perinephric stranding. BLADDER: Unremarkable. GASTROINTESTINAL TRACT: Evaluation of the gastrointestinal system demonstrates postsurgical changes related to prior gastric bypass surgery. Ingested oral contrast is identified within the proximal jejunum. Of note, there is feculent material within the imaged loops of small bowel, which is nonspecific but can be seen in the setting of delayed intestinal transit. This can also be seen in the setting of an early small bowel obstruction. There are multiple air-filled loops of large bowel. There is also identified within the rectum. There are no visible organizing intra-abdominal or pelvic fluid collections and there is no free intraperitoneal air. ABDOMINAL WALL: No significant hernia is appreciated. LYMPH NODES: No significant abdominal or pelvic adenopathy. VASCULAR: Patent abdominal vasculature. Normal course and caliber of the abdominal aorta and its branching vessels, without aneurysmal dilatation. PELVIC VISCERA: Interval development of hypoattenuating lesions within the bilateral adnexa measuring 4.5 x 5.9 cm within the right adnexa and 4.2 x 5.2 cm within the left adnexa. These may reflect bilateral ovarian cysts. OSSEOUS STRUCTURES: No acute osseous abnormality. Normal alignment of the thoracolumbar spine. IMPRESSION: 1. Limited evaluation of the abdomen secondary to scant intra-abdominal fat. There are postsurgical changes related to prior gastric bypass surgery, with ingested oral contrast visualized opacifying the proximal jejunum. Feculent material is identified within multiple loops of small bowel within the abdomen. This finding is consistent with a small bowel feces sign, which is indicative of underlying delayed intestinal transit. Although air is identified within the colon and rectum, a developing small bowel obstruction cannot be excluded. If there is clinical concern for integrity of the gastric bypass, consider correlation with a fluoroscopic upper GI exam. 2. Interval development of hypoattenuating lesions within the bilateral adnexa measuring 4.5 x 5.9 cm within the right adnexa and 4.2 x 5.2 cm within the left adnexa. If the patient is experiencing pelvic pain, consider correlation with pelvic ultrasound. DICTATED BY: ARELI MURO MD DATE/TIME DICTATED:08/16/161749 WELFARE CENTRE MANAGER:WERO DATE/TIME TRANSCRIBED:08/16/161749 Assessment/Plan Assessment: Ms. Enriquez is a 30-year-old female with sudden onset of midepigastric and upper abdominal pain. She is status post lap gastric bypass surgery and was asymptomatic until this afternoon. CAT scan taken today is suggestive of small bowel obstruction but cannot be conclusively ruled out. The patient was also evaluated by Dr. German in the emergency room and felt that the patient should be admitted for IV abdominal pain medication, serial abdominal exams, follow-up x-rays in a.m. to assess bowel gas pattern. Plan Admit to Dr. German Nothing by mouth/IV fluids IV pain medication Serial abdominal exams if condition worsens Follow-up x-ray in a.m. As Ranked By This Provider Problem List: 1. Abdominal pain Core Measures/Miscellaneous Acute Coronary Syndrome ACS Diagnosis: No Cerebrovascular Accident CVA/TIA Diagnosis: No Congestive Heart Failure CHF Diagnosis: No Venous Thromboembolism VTE Risk Factors: No Risk Factors No [facility] VTE prophylaxis d/t: No contraindications No VTE Pharm Prophylaxis d/t: No contraindications VTE Diagnosis: No VTE Type: NONE VTE Confirmed by (Test): NONE Severe Sepsis Severe Sepsis Present: No Septic Shock Septic Shock Present: No Miscellaneous Documentation Attending Case Discussed With: DEANDRE VAN DO Primary Care Physician: JACKIE MEMBRENO MD, I. Patient sees these Specialists none Level of Patient Care: General Medicine DEANDRE VAN DO 09/01/16 1005: General Information and HPI Allergies/Medications Home Med list Butalb/Acetaminophen/Caffeine (Fioricet 50-300-40 MG Capsule) 50 MG-300 MG-40 MG CAPSULE 1 TAB PO TID PRN MIGRAINE Diazepam (Valium) 5 MG TABLET 1 TAB PO Q8P spasms Hydroxyzine HCl 25 MG TABLET 1 TAB PO TID ANXIETY Metoclopramide HCl (Reglan) 10 MG TABLET 1 TAB PO 4 TIMES/DAY PRN NAUSEA 30 minutes before meals and bedtime Omeprazole 20 MG TABLET.DR 1 TAB PO DAILY ACIDITY Ondansetron HCl (Zofran) 4 MG TABLET 1 TAB PO Q6-8P PRN NAUSEA Promethazine HCl (Unknown Strength) TABLET (Unknown Dose) PO AD NAUSEA ( Reported) Attending MD Review Statement Attending Statement Attending MD Statement: examined this patient, discuss w/resident/PA/DRAW FIRE OPERATOR, agreed w/resident/PA/DRAW FIRE OPERATOR, reviewed EMR data (avail), reviewed images Attending Assessment/Plan: Patient seen and examined, agree with above. Recurrent N/V with abdominal pain. CT scan basically unchanged. Patient comfortable but c/o pain. Will admit overnigth for observation and pain control, AXR in AM.
[2016-08-16 22:47] VITALS: BP 112/76
[2016-08-17 06:05] VITALS: BP 118/78
--- NOTE | 2016-08-17 07:18 | PN- Bariatrics ---
See Addendum Subjective Subjective: The patient was seen this morning. She reports that once she got the IV Protonix for acid was better controlled and she has had no further nausea since then. She reports that her abdominal pain is slightly better but still there are she describes it as sharp starting in the right upper quadrant that wraps around to her flank and her back. She has ultimately to the current time and denies any chest pain or difficulty breathing. Objective Vital Signs and I&Os Vital Signs Date Time Temp Pulse Resp B/P B/P Pulse O2 O2 Flow FiO2 Mean Ox Delivery Rate 08/17 604 97.9 59 20 118/78 100 Room Air 08/16 2247 98.6 64 19 112/76 98 Room Air 08/16 2215 Room Air 08/16 2128 98.2 71 18 129/74 99 Room Air 08/16 1948 98.3 65 16 126/64 97 Room Air 08/16 1804 96.3 78 18 125/68 08/16 1709 Room Air 08/16 1600 97.8 73 20 129/83 97 Room Air Intake & Output 08/17 0000 08/16 1600 08/16 0808/16 0000 08/15 1600 Intake Total 650 0 Output Total Balance 650 0 Intake, IV 650 0 Intake, Oral 0 Number 0 Bowel Movements Patient 140 lb 140 lb Weight Weight Estimated Estimated Measurement Method Physical Exam: Gen.: Alert and in no obvious distress Skin: Warm and dry Abdomen: Soft, nondistended, bowel sounds positive. Mild right upper quadrant tenderness without rebound or guarding. No masses or hernias were appreciated. Extremities: Bilateral lower extremities are warm without calf tenderness or significant edema. Assessment/Plan Assessment/Plan Assessment: 30-year-old female with history of gastric bypass and cholecystectomy readmitted for intractable abdominal pain and nausea. Currently she is without nausea since receiving her PPI and her abdominal pain is somewhat improved. Plan: Continue nothing by mouth and hydration GI and DVT prophylaxis Continue current pain regiment Follow-up abdominal multiview x-ray and laboratory studies this morning Out of bed and ambulate Core Measures/Miscellaneous Venous Thromboembolism VTE Risk Factors: No Risk Factors VTE Contraindications: No Contraindications VTE Diagnosis: No VTE Type: NONE VTE Confirmed by (Test): NONE Beta Mary Jane Is Beta Mary Jane a Home Med? No Antibiotics Is Patient on Antibiotics? No
--- NOTE | 2016-08-17 09:37 | NUR ---
NSG NOTE: 0730 PATIENT NOTED TO BE COMFORTABLE, NO PAIN; AROUND 0830 PATIENT NOTED TO BE IN 8/10 PAIN HOLDING HER SIDE AND CHESTL IV TORADOL GIVEN; 0930 PATIENT IS IN 10/10 PAIN; SURGICAL PA ROBERT PAGED AND IS AWARE, STATED DR. VAN WILL BE MADE AWARE; PATIENT ABLE TO RECEIVE PRN DOSE OF MORPHINE AT 1050; WILL CONT TO MONITOR
--- NOTE | 2016-08-17 09:40 | RADIOLOGY REPORT ---
EXAMINATION: XR ABDOMEN MULTIPLE VIEWS CLINICAL INDICATION: Evaluate for obstruction COMPARISON: 08/16/2016 TECHNIQUE: 2 views FINDINGS: No free air. Once again some mildly prominent air-filled loops of bowel but these are not changed from previous. Overall is nonobstructing pattern. IMPRESSION: No free air. Overall the bowel pattern is nonobstructing. Some mild air in large and small bowel
[2016-08-17] MEDS ORDERED: VALIUM5 M2 PO (10:12)
--- NOTE | 2016-08-17 10:16 | Patient Discharge Instructions ---
Discharge Instructions General Discharge Information You were seen/treated for: Intractable nausea and pain You had these procedures: Conservative management Watch for these problems: Significantly increased pain, vomiting, or temperatures over 101 Special Instructions: If pain does not resolve follow-up with her primary care physician Warm compresses or heating pads to right chest wall and flank as needed for comfort Diet Continue normal diet: Yes Activity Activity Self Limited: Yes Acute Coronary Syndrome Inclusion Criteria At DC or during hospital stay patient has or had the following: ACS DIAGNOSIS No Discharge Core Measures Meds if any: Prescribed or Continued at Discharge Meds if any: NOT Prescribed or Continued at Discharge Congestive Heart Failure Inclusion Criteria At DC or during hospital stay patient has or had the following: CHF DIAGNOSIS No Discharge Core Measures Meds if any: Prescribed or Continued at Discharge Meds if any: NOT Prescribed or Continued at Discharge Cerebrovascular accident Inclusion Criteria At DC or during hospital stay patient has or had the following: CVA/TIA Diagnosis No Discharge Core Measures Meds if any: Prescribed or Continued at Discharge Meds if any: NOT Prescribed or Continued at Discharge Venous thromboembolism Inclusion Criteria VTE Diagnosis No VTE Type NONE VTE Confirmed by (Test) NONE Discharge Core Measures - Per Current guidelines, there needs to be overlap - treatment for the first 5 days of Warfarin therapy. - If discharged on Warfarin prior to 5 days of - overlap therapy, the patient will need to be - assessed for post discharge needs including - *Post discharge parental anticoagulation - *Warfarin and/or parental anticoagulation education - *Follow up date to check INR post discharge At least 5 days overlap therapy as Inpatient No Meds if any: Prescribed or Continued at Discharge Note: Overlap Therapy is Warfarin and Anticoagulant Meds if any: NOT Prescribed or Continued at Discharge
[2016-08-17 14:14] VITALS: BP 118/70
--- NOTE | 2016-08-17 17:14 | NUR ---
NURSING NOTE: PATIENT A/OX3, PAIN CONTROLLED AT THIS TIME WITH MEDICATION. PATIENT DISCHARGED TO HOME SELF CARE WITH PRESCRIPTIONS, AND DISCHARGE PAPERWORK. IV DISCONTINUED. ALL BELONGINGS LEFT WITH PATIENT.
== END 2016-08-17 17:13 ==
LOC: ERH 15:57 → 2NB 19:40 → ERHI 19:40 → ENRESERV 20:32 → 2NB 21:43 → ENPENDDIS 08-17 10:19 → 2NB 08-17 17:13
PROVIDERS: Physician Assistant Medical; ADMIT Surgery
DX: R10.10 Upper abdominal pain, unspecified (principal); R11.0 Nausea; Z98.84 Bariatric surgery status
CPT/HCPCS: 6040; 74020; 74177; 81001; 81025; 93005; 93010; 96374; 96375; 96376; G0378; J0131; J1885; J2405; J7042

== ENCOUNTER 2017-08-11 22:47 | Emergency (ER) | payer OTHER ==
[~2017-08-11] VITALS: Ht 177.8 cm; Wt 72.6 kg
[~2017-08-11 22:47] MED LIST changes: +BUTALB-ACETAMI1 EACH PO; +BUTALB-CAFF-AC1 EACH PO; +FIORINAL WITH1 EACH PO; +FLUOXETINE HCL20 M2 PO; +FOLBIC RF TABL1 EACH; +OXYCODONE HCL5 M1 PO; +VALIUM5 M2 PO; +VITAMIN B-121000 MC3 PO; +VITAMIN D2000 UNIT PO; +VITAMIN D400 UNI1 PO
--- NOTE | 2017-08-11 22:52 | ED CARDIAC/CP/PALPITATIONS ---
History of Present Illness General Chief Complaint: Chest Pain Stated Complaint: BIBA CP Source: patient, old records, EMS Exam Limitations: no limitations Vital Signs & Intake/Output Vital Signs & Intake/Output Vital Signs Date Time Temp Pulse Resp B/P B/P Pulse O2 O2 Flow FiO2 Mean Ox Delivery Rate 08/12 0301 88 20 142/87 97 Room Air 08/11 2303 98 Room Air 08/11 2302 99 08/11 2253 98.7 102 22 151/84 98 Room Air ED Intake and Output 08/12 0000 08/11 1200 Intake Total Output Total Balance Patient 160 lb Weight Weight Reported by Patient Measurement Method Allergies Coded Allergies: Cephalosporins (ANAPHYLAXIS 03/05/17) Penicillins (ANAPHYLAXIS 03/05/17) amoxicillin (ANAPHYLAXIS 03/05/17) eletriptan (From RELPAX) (HIVES 03/05/17) latex (HIVES, DYSPNEA 03/05/17) prednisone (STOPS HEART PER PT 03/05/17) sumatriptan (From IMITREX) (HIVES 03/05/17) Reconcile Medications B12/Levomefolate Calcium/B-6 (Folbic Rf Tablet) 2 MG-1.13 MG-25 MG TABLET VITAMIN SUPPLEMENT (Reported) Cholecalciferol (Vitamin D3) (Vitamin D) 400 UNIT CAPSULE 1 TAB PO VITAMIN SUPPLEMENT (Reported) Codeine/Butalbital/Asa/Caffein (Fiorinal With Codeine #3 Cap) 30 MG-50 MG-325 MG -40 MG CAPSULE 1 TAB PO BID PRN headache Triage Nurses Notes Reviewed? yes Onset: Gradual Duration: day(s): Timing: single episode today Location: right chest wall, right back Radiation: no radiation Activities at Onset: none Prior Chest Pain/Card Workup: no prior chest pain Modifying Factors: Worsens With: movement, palpation. Associated Symptoms: right rib cage and right back pain HPI: 31 yo woman h/o asthma, gerd, presents with right sided sudden onset of chest wall pain. Was given fentanyl 70mcg iv via medics. She does not note any precipitant. She notes the pain is worse with movement and palpation. It is difficult for her to take a deep breath. No fever, wheeze, chills, phlegm. She is otherwise well. Past History Travel History Traveled to [place] past 21 day No Medical History Any Pertinent Medical History? 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) EENT: NONE Cardiovascular: NONE Respiratory: asthma Gastrointestinal: GERD, pancreatitis, SMA SYNDROME Hepatic: cholelithiasis Renal: NONE Musculoskeletal: CHRONIC NECK PAIN Psychiatric: depression Endocrine: NONE Blood Disorders: anemia Cancer(s): cervical cancer FURNACE DOOR TENDER/Reproductive: YEAST WHEN ON ABX History of MRSA: No History of VRE: No History of CDIFF: No Surgical History Surgical History: appendectomy (laparoscopic), cholecystectomy (laparoscopic), hernia repair-incisional, lap gastric bypass 08/2004 lap repair Petersens hernia 08/2007 LEEP procedure- dysplasia 2016 sma syndrome surgery Psychosocial History Who do you live with Family Services at Home None What is your primary language Beninese Family History Family History, If Any: MOTHER FATHER Relation not specified for: FH: colonic polyps Irritable bowel syndrome Hx Contributory? No Review of Systems Review of Systems Constitutional: Reports: no symptoms. EENTM: Reports: no symptoms. Respiratory: Reports: no symptoms. Cardiovascular: Reports: no symptoms. GI: Reports: no symptoms. Genitourinary: Reports: no symptoms. Musculoskeletal: Reports: no symptoms. Skin: Reports: no symptoms. Neurological/Psychological: Reports: no symptoms. Hematologic/Endocrine: Reports: no symptoms. Immunologic/Allergic: Reports: no symptoms. All Other Systems: Reviewed and Negative Physical Exam Physical Exam General Appearance: well developed/nourished, moderate distress Head: atraumatic, normal appearance Eyes: Bilateral: normal appearance. Ears, Nose, Throat: normal pharynx, normal ENT inspection Neck: normal inspection, supple, full range of motion Respiratory: normal breath sounds, no respiratory distress, right sided rib cage tenderness and right back paravertebral muscle spasm and tenderness. Cardiovascular: regular rate/rhythm Gastrointestinal: normal bowel sounds, soft, non-tender Back: normal inspection, normal range of motion Extremities: normal inspection Neurologic/Psych: no motor/sensory deficits, awake, alert, oriented x 3 Skin: intact, normal color, warm/dry Core Measures ACS in differential dx? No CVA/TIA Diagnosis No Sepsis Present: No Sepsis Focused Exam Completed? No Progress Differential Diagnosis: pneumothorax, PE, chest wall pain vs other. Plan of Care: Orders Procedure Date/time Status TROPONIN LEVEL 08/12 0210 Complete EKG 08/12 0210 Active EKG 08/11 2320 Active TROPONIN LEVEL 08/12 2251 Complete HUMAN BETA HCG SCREEN 08/12 2251 Complete D-DIMER 08/12 2251 Complete COMPREHENSIVE METABOLIC PANEL 08/12 2251 Complete CBC WITHOUT DIFFERENTIAL 08/12 2251 Complete Laboratory Tests 08/12/17 0232: Troponin I < 0.01 08/11/17 2327: Anion Gap 14, Estimated GFR > 60, BUN/Creatinine Ratio 18.6, Glucose 101 H, Calcium 9.8, Total Bilirubin 0.5, AST 114 H, ALT 63 H, Alkaline Phosphatase 141 H, Troponin I < 0.01, Total Protein 7.9, Albumin 5.1 H, Globulin 2.8, Albumin/Globulin Ratio 1.8, Total Beta HCG NEGATIVE, D-Dimer High Sensitivty < 200, CBC w Diff NO MAN DIFF REQ, RBC 4.61, MCV 92.1, MCH 30.3, MCHC 32.9 L, RDW 13.3, MPV 9.2, Gran % 44.4, Lymphocytes % 47.2, Monocytes % 5.9, Eosinophils % 2.0, Basophils % 0.5, Absolute Granulocytes 4.7, Absolute Lymphocytes 5.0 H, Absolute Monocytes 0.6, Absolute Eosinophils 0.2, Absolute Basophils 0.1 Diagnostic Imaging: Viewed by Me: Radiology Read, CT Scan. Discussed w/RAD: Radiology Read, CT Scan. Radiology Impression: PATIENT: GOOD ENRIQUEZ PRESENT AGE: 31 PATIENT ACCOUNT NO: [id number] : 84 LOCATION: [facility] ([place]) ORDERING PHYSICIAN: Von Rutherford MD SERVICE DATE: 08/12/17 EXAM TYPE: CAT - CTA CHEST-PULMONARY EMBOLISM EXAMINATION: CT ANGIOGRAM OF THE CHEST WITH AND WITHOUT CONTRAST (CT PULMONARY ANGIOGRAM FOR PE) CLINICAL INFORMATION: Severe chest pain. COMPARISON: Radiograph from 08/11/2017 TECHNIQUE: Prior to contrast administration, noncontrast localization images were obtained. Subsequently, multidetector volumetric imaging was performed from the thoracic inlet to below the diaphragms following the administration of 95 mL Optiray 320 intravenous contrast. No contrast reaction reported. Sagittal, coronal, and MIP oblique sagittal reformatted images were obtained on the CT workstation, uploaded to PACS, and reviewed. Total exam dose-length product 304 mGy-cm. FINDINGS: QUALITY OF STUDY/CONTRAST BOLUS: Satisfactory PULMONARY ARTERIES: No central or segmental pulmonary emboli. THORACIC AORTA: No aneurysm or dissection. LUNG: The central airways are patent. There is no consolidation. No suspicious pulmonary nodules. Minimal scarring at the right posterior apex. PLEURA: No pleural effusion or pneumothorax. MEDIASTINUM: Normal heart size. No pericardial effusion. No hilar or mediastinal lymphadenopathy. Residual thymic tissue noted. No evidence of septal bowing or right heart strain. CHEST WALL/ AXILLA: No axillary or internal mammary lymphadenopathy. OSSEOUS STRUCTURES: No acute or suspicious osseous abnormality. UPPER ABDOMEN: Postsurgical changes, possibly associated with gastric bypass. Gas-filled bowel seen in the upper abdomen. No reflux of contrast into the hepatic veins to suggest elevated right heart pressures. IMPRESSION: No pulmonary embolism or other acute intrathoracic abnormality. Gas-filled bowel seen in the upper abdomen. VTE: negative DICTATED BY: Tunde Guerrero MD DATE/TIME DICTATED:08/12/17226 [facility] SPECIALIST: WEOR DATE/TIME TRANSCRIBED:08/12/17226 CONFIDENTIAL, DO NOT COPY WITHOUT APPROPRIATE AUTHORIZATION. <Electronically signed in Other Vendor System> SIGNED BY: Tunde Guerrero MD 08/12/17232 CXR Impression: PATIENT: GOOD ENRIQUEZ PRESENT AGE: 31 PATIENT ACCOUNT NO: [id number] : 84 LOCATION: [facility] ([place]) ORDERING PHYSICIAN: Von Rutherford MD SERVICE DATE: 08/11/17 EXAM TYPE: RAD - XRY- PORTABLE CHEST XRAY EXAMINATION: XR PORTABLE CHEST CLINICAL INFORMATION: Right chest pain COMPARISON: 08/16/2016 TECHNIQUE: Portable frontal view of the chest was obtained. FINDINGS: Lung volumes are low. There is elevation of the left hemidiaphragm with underlying gas filled colon. No consolidation, edema, or effusion. No pneumothorax. The cardiomediastinal silhouette is within normal limits. No acute osseous abnormality. IMPRESSION: Low lung volumes with no acute pulmonary findings. DICTATED BY: Tunde Guerrero MD DATE/TIME DICTATED:20 [facility] SPECIALIST:WEOR DATE/TIME TRANSCRIBED:08/12/1720 CONFIDENTIAL, DO NOT COPY WITHOUT APPROPRIATE AUTHORIZATION. <Electronically signed in Other Vendor System> SIGNED BY: Tunde Guerrero MD 08/12/1725 Initial ED EKG: normal axis, normal intervals, normal p-waves, normal QRS complex, normal sinus rhythm Repeat EKG: unchanged Departure Departure Disposition: HOME OR SELF CARE Condition: Stable Clinical Impression Primary Impression: Chest wall pain Secondary Impressions: Musculoskeletal pain Referrals: Maureen DE LA CRUZ,Stephen Rosales (PCP/Family) Departure Forms: Customer Survey General Discharge Information Comments 08/12/17, 3:52am... pt with reproducible musculoskeletal discomfort, benign ekg/ trop x 2. ct angio benign... pt safe for discharge with close follow up advised. Critical Care Note Critical Care Note Critical Care Time: non-applicable
[2017-08-11 23:38] LABS: ABSOLUTE BASOPHIL COUNT 0.1 /CUMM (0.0-0.2); ABSOLUTE EOSINOPHIL COUNT 0.2 /CUMM (0.0-0.7); ABSOLUTE GRANULOCYTE CT 4.7 /CUMM (1.4-6.5); ABSOLUTE MONOCYTE COUNT 0.6 /CUMM (0.10-0.60); BASOPHIL % 0.5 % (0.0-2.0); GRANULOCYTE % 44.4 % (42.2-75.2); HEMATOCRIT 42.5 % (37-47); MEAN CORPUSCULAR HGB 30.3 PG (27.0-31.0); MEAN CORPUSCULAR HGB CONC 32.9 G/DL (33.0-37.0); MEAN CORPUSCULAR VOLUME 92.1 FL (81.0-99.0); MEAN PLATELET VOLUME 9.2 FL (7.4-10.4); PLATELET COUNT 362 /CUMM (130-400); RBC DISTRIBUTION WIDTH 13.3 % (11.5-14.5); RED BLOOD CELL CT 4.61 /CUMM (4.20-5.40)
[2017-08-12 00:11] LABS: WHITE BLOOD CELL COUNT 10.6 /CUMM (4.8-10.8)
--- NOTE | 2017-08-12 00:26 | RADIOLOGY REPORT ---
EXAMINATION: XR PORTABLE CHEST CLINICAL INFORMATION: Right chest pain COMPARISON: 08/16/2016 TECHNIQUE: Portable frontal view of the chest was obtained. FINDINGS: Lung volumes are low. There is elevation of the left hemidiaphragm with underlying gas filled colon. No consolidation, edema, or effusion. No pneumothorax. The cardiomediastinal silhouette is within normal limits. No acute osseous abnormality. IMPRESSION: Low lung volumes with no acute pulmonary findings.
--- NOTE | 2017-08-12 02:33 | CT SCAN REPORT ---
EXAMINATION: CT ANGIOGRAM OF THE CHEST WITH AND WITHOUT CONTRAST (CT PULMONARY ANGIOGRAM FOR PE) CLINICAL INFORMATION: Severe chest pain. COMPARISON: Radiograph from 08/11/2017 TECHNIQUE: Prior to contrast administration, noncontrast localization images were obtained. Subsequently, multidetector volumetric imaging was performed from the thoracic inlet to below the diaphragms following the administration of 95 mL Optiray 320 intravenous contrast. No contrast reaction reported. Sagittal, coronal, and MIP oblique sagittal reformatted images were obtained on the CT workstation, uploaded to PACS, and reviewed. Total exam dose-length product 304 mGy-cm. FINDINGS: QUALITY OF STUDY/CONTRAST BOLUS: Satisfactory PULMONARY ARTERIES: No central or segmental pulmonary emboli. THORACIC AORTA: No aneurysm or dissection. LUNG: The central airways are patent. There is no consolidation. No suspicious pulmonary nodules. Minimal scarring at the right posterior apex. PLEURA: No pleural effusion or pneumothorax. MEDIASTINUM: Normal heart size. No pericardial effusion. No hilar or mediastinal lymphadenopathy. Residual thymic tissue noted. No evidence of septal bowing or right heart strain. CHEST WALL/AXILLA: No axillary or internal mammary lymphadenopathy. OSSEOUS STRUCTURES: No acute or suspicious osseous abnormality. UPPER ABDOMEN: Postsurgical changes, possibly associated with gastric bypass. Gas-filled bowel seen in the upper abdomen. No reflux of contrast into the hepatic veins to suggest elevated right heart pressures. IMPRESSION: No pulmonary embolism or other acute intrathoracic abnormality. Gas-filled bowel seen in the upper abdomen. VTE: negative
[2017-08-12 03:01] VITALS: BP 142/87
== END 2017-08-12 03:55 ==
LOC: ERH 22:47
PROVIDERS: Pediatrics
DX: R07.89 Other chest pain (principal)
CPT/HCPCS: 1263; 71045; 93005; 93010; 96374; 96375; 96376; J0131; J1885